=== PATIENT | female | born 1945 | race Caucasian/White ===

== ENCOUNTER 2019-12-07 09:00 | Outpatient (CLI) | payer MEDICARE, SELFPAY ==
--- NOTE | ~2019-12-07 | MM_ITS ---
EXAMINATION: MM diagnostic tayo RT w marshal HISTORY: Six-month follow-up of probably benign right breast calcifications TECHNIQUE: ML, MLO and cc 3-D tomosynthesis images of the right breast and magnification views were p erformed and synthetic 2-D images were generated. CAD analysis was submitted and interpreted. COMPARISON: 05/28/2019 diagnostic right digital mammogram 05/20/2019 bilateral digital screening mammogram BREAST PARENCHYMAL COMPOSITION: There are scattered areas of fibroglandular density. FINDINGS: There are scattered benign calcifications. No suspicious mass or architectural distortion, malignant calcification, skin thickening or retraction or significant new or developing density is de tected. IMPRESSION: No mammographic evidence of malignancy Recommendation: Routine annual mammographic screening BI-RADS Category 2: Benign finding(s). Reviewed, dictated and finalized at location A. LIFTER
== END 2019-12-07 09:01 | disposition home or self-care (01) ==
PROVIDERS: PCP Internal Medicine; Visit Provider Internal Medicine
DX: R92.8 Other abnormal and inconclusive findings on diagnostic imaging of breast (principal)
CPT/HCPCS: 77061; 77065; G0279

== ENCOUNTER 2020-10-20 14:51 | Emergency (ER) | payer MEDICARE, SELFPAY ==
--- NOTE | ~2020-10-20 | XR_ITS ---
EXAMINATION: XR chest 1V portable DATE: 10/20/2020 15:31 INDICATION: COVID-19 pneumonia. TECHNIQUE: A single frontal view of the chest was obtained on 2 radiographs. COMPARISON: Chest single view 06/23/2009 FINDINGS: There are patchy airspace opacities in all right lung zones and in left lower lung zone. No pleural effusion or pneumothorax. The heart size is normal. IMPRESSION: 1. Multifocal lung disease, consistent with pneumonia. Reviewed, dictated and finalized at location A. YSTEMS ENGINEER
[2020-10-20 14:51] VITALS: BP 175/81; PULSE 88; RESP 20; TEMP 36.6; O2SAT 94
[2020-10-20 15:35] LABS: Basophils Absolute Auto 0.02 K/mm3 (0.00-0.10); Basophils Percent Auto 0.5 % (0.0-1.0); Eosinophils Absolute Auto 0.01 K/mm3 (0.02-0.50); Eosinophils Percent Auto 0.2 % (1.0-6.0); Hematocrit 37.8 % (35.0-42.0); Hemoglobin 13.3 g/dL (11.7-13.8); Immature Granulocyte Absolute 0.02 K/mm3 (0.00-0.00); Immature Granulocyte Percent A 0.5 % (0.0-0.0); Lymphocytes Percent Auto 19.9 % (18.0-42.0); Mean Corpuscular HGB Conc 35.2 g/dL (32.0-36.0); Mean Corpuscular Hemoglobin 33.2 pg (27.0-31.0); Mean Corpuscular Volume 94.3 fL (78.0-102.0); Mean Platelet Volume 10.3 fl (9.2-11.8); Monocytes Absolute Auto 0.45 K/mm3 (0.10-0.90); Monocytes Percent Auto 11.2 % (2.0-11.0); Neutrophils Absolute Auto 2.7 K/mm3 (1.7-7.2); Neutrophils Percent Auto 67.7 % (50.0-70.0); Platelet Count Result 164 K/mm3 (150-420); Red Blood Count 4.01 M/mm3 (4.20-5.40); Red Cell Distribution Width 11.7 % (11.6-14.4)
[2020-10-20 15:51] LABS: Alanine Aminotransferase 55 U/L (14-59); Albumin Level 3.9 g/dL (3.4-5.0); Alkaline Phosphatase 55 U/L (46-116); Anion Gap 10 mmol/L (8-16); Aspartate Amino Transferase 50 U/L (15-37); Bilirubin,Total 0.5 mg/dL (0.00-1.00); Blood Urea Nitrogen 15 mg/dL (7-18); Calcium 8.9 mg/dL (8.5-10.1); Carbon Dioxide 26 mmol/L (21-32); Chloride 104 mmol/L (98-108); Estimated CRCL calculation 32 ml/min; Estimated Glomerular Filt Rate 44; Glucose 97 mg/dL (70-99); Osmolality Calculated 290 mOsm/kg (285-295); Potassium 3.6 mmol/L (3.5-5.1); Sodium 140 mmol/L (136-145); Total Protein 7.5 g/dL (6.4-8.2)
--- NOTE | 2020-10-20 16:08 | ED.SOB ---
HPI - SOB/Dyspnea General Chief Complaint: Shortness of Breath/Dyspnea Stated Complaint: sent from doctor sandra Source: patient Mode of arrival: ambulatory Limitations: no limitations History of Present Illness HPI Narrative: this is a 74-year-old female presents to the emergency department after she was diagnosis positive for COVID approximately 9 days ago and talk to her primary care physician where she was having increased shortness of breath with exertion and productive cough yellow sputum currently patient is afebrile, there is no chest pain no chest pressure no fever chills no nausea vomiting no abdominal pain. Patient has some history of hypertension and hyperlipidemia. MD elicited complaint: shortness of breath and cough Pertinent past history: other ( COVID positive approximately 9 days ago) Onset (ago): day(s) Severity: mild Exacerbating factors: exertion Related Data Home Medications Medication Instructions Recorded Confirmed ergocalciferol (vitamin D2) 1,250 mcg PO DAILY 10/20/20 10/20/20 pravastatin 10 mg PO DAILY 10/20/20 10/20/20 Allergies Allergy/AdvReac Type Severity Reaction Status Date / Time No Known Allergies Allergy Unverified 06/28/13 13:53 Review of Systems Review of Systems: All systems reviewed & are unremarkable except as noted in HPI and below PMFSH Past Medical History Medical History HLD (hyperlipidemia) HTN (hypertension) Exam Const: General: no acute distress and alert Orientation/consciousness: patient oriented x3 HENMT: Head: normal to inspection Eyes: Conjunctivae: conjunctivae normal Pupils: Equal, round and reactive pupils present EOM: EOMs intact bilaterally Direct Ophthalmoscopy: no photophobia Neck: Neck: normal visual inspection, no lymphadenopathy and no meningeal signs Chest: Chest palpation & inspection: normal inspection of the chest Resp: Effort & Inspection: normal respiratory effort Auscultation: clear to auscultation bilaterally Cardio: Rate: regular rate Rhythm: regular rhythm GI: Auscultation: normal bowel sounds : General: Yes no CVA tenderness Urinary Catheter: Urinary Catheter: patent and draining Back/Spine/Pelvis: Back: no CVA tenderness Skin: General skin exam: normal color Rashes: no rashes Extrem: General: normal to inspection and no pedal edema Psych: Mental Status: mental status grossly normal Course Course Emergency Course: after reassessment patient discuss findings of chest x-ray with patient and did show some patchy opacifications the right lung and left lower lung zones. The patient some CURB -65 score was 1, patient safe to discharge on an outpatient basis with a dose of IM ceftriaxone and well sent to patient's pharmacy Levaquin p.o.. Vital Signs Vital signs: Vital Signs Temperature 36.6 C 10/20/20 14:51 Pulse Rate 88 10/20/20 14:51 Respiratory Rate 20 10/20/20 14:51 Blood Pressure 175/81 H 10/20/20 14:51 Pulse Oximetry 94 10/20/20 14:51 Temperature 36.6 C 10/20/20 14:51 Pulse Rate 88 10/20/20 14:51 Respiratory Rate 20 10/20/20 14:51 Blood Pressure 175/81 H 10/20/20 14:51 Pulse Oximetry 94 10/20/20 14:51 MDM - SOB/Dyspnea Lab Data Result diagrams: 10/20/20 15:22 10/20/20 15:22 Labs: Lab Results 10/20/20 10/20/20 Range/Units 15:22 15:22 WBC 4.0 L (4.8-10.8) K/mm3 RBC 4.01 L (4.20-5.40) M/mm3 Hgb 13.3 (11.7-13.8) g/dL Hct 37.8 (35.0-42.0) % MCV 94.3 (78.0-102.0) fL MCH 33.2 H (27.0-31.0) pg MCHC 35.2 (32.0-36.0) g/dL RDW 11.7 (11.6-14.4) % Plt Count 164 (150-420) K/mm3 MPV 10.3 (9.2-11.8) fl Immature Gran % (Auto) 0.5 H (0.0-0.0) % Neut % (Auto) 67.7 (50.0-70.0) % Lymph % (Auto) 19.9 (18.0-42.0) % [place] % (Auto) 11.2 H (2.0-11.0) % Eos % (Auto) 0.2 L (1.0-6.0) % Baso % (Auto) 0.5 (0.0-1.0) % Lymph # (Auto) 0.80
[2020-10-20] MEDS: cefTRIAXone 1 GM VIAL IM (16:18)
[2020-10-20] MEDS: LIDOCAINE HCL 1% LOCAL INJ 20 ML VIAL (16:18)
[2020-10-20 16:30] VITALS: BP 129/63; PULSE 75; RESP 20; O2SAT 92
--- NOTE | 2020-10-20 16:57 | PC.NURSE ---
BETO, PHARMACIST AT [facility] CONTACTED FOR LEVAQUIN QUANTITY AND REFILL CORRECTION
== END 2020-10-20 16:50 | disposition home or self-care (01) ==
PROVIDERS: Emergency Provider Emergency Medicine; PCP Internal Medicine
DX: J18.9 Pneumonia, unspecified organism (principal); E78.5 Hyperlipidemia, unspecified; I10 Essential (primary) hypertension
CPT/HCPCS: 36415; 71045; 80053; 85025; 87040; 87077; 87186; 96372; 99283; J0696

== ENCOUNTER 2020-10-24 13:56 | Emergency (ER) | payer MEDICARE, SELFPAY ==
[2020-10-24] VITALS (14 sets, daily range): BP systolic 130–177; BP diastolic 61–85; PULSE 68–83; RESP 18–24; TEMP 37.2; O2SAT 95–99
--- NOTE | ~2020-10-24 | XR_ITS ---
EXAMINATION: XR chest 1V portable DATE: 10/24/2020 15:12 INDICATION: Cough and shortness of breath. COVID-19 pneumonia. TECHNIQUE: A single frontal view of the chest was obtained. COMPARISON: Chest single view 10/20/2020 FINDINGS: There are patchy airspace opacities in the mid and lower lung zones. No pleural effusion or pneumothorax. The heart size is normal. IMPRESSION: 1. Worsened patchy airspace opacities in the mid and lower lung zones, consistent with pneumonia. Reviewed, dictated and finalized at location A. F WELLNESS OFFICER IMPRESSION: 1. Worsened patchy airspace opacities in the mid and lower lung zones, consiste nt with pneumonia.
--- NOTE | 2020-10-24 14:55 | ECG_ITS ---
Measurements Intervals [place] Rate: 72 P: 38 NE: 127 QRS: -14 QRSD: 106 T: 31 QT: 380 QTc: 419 Interpretive Statements SINUS RHYTHM BASELINE ARTIFACT- V5 NORMAL ECG Electronically Signed On 10-24-2020 15:57:06 RIB PULLER by Tony Laurent D.O.
[2020-10-24 15:23] LABS: Basophils Percent Auto 0.3 % (0.2-1.2); Eosinophils Percent Auto 0.7 % (0-4.4); Hematocrit 34.1 % (37.0-47.0); Immature Granulocyte Absolute 0.04 K/mm3 (0.00-0.031); Immature Granulocyte Percent A 0.7 % (0-0.5); Lymphocytes Absolute Auto 0.96 K/mm3 (0.9-3.2); Lymphocytes Percent Auto 16.4 % (18.3-44.2); Mean Corpuscular HGB Conc 35.2 g/dl (32-36); Mean Corpuscular Hemoglobin 32.4 pg (26-34); Mean Corpuscular Volume 92.2 fl (80-100); Monocytes Absolute Auto 0.6 K/mm3 (0.1-0.6); Monocytes Percent Auto 9.7 % (2.6-8.5); Neutrophils Absolute Auto 4.2 K/mm3 (1.3-6.7); Neutrophils Percent Auto 72.2 % (45.5-73.1); Platelet Count Result 202 k/mm3 (150-375); Red Cell Distribution Width 11.4 % (11.5-14.5); White Blood Count 5.9 K/mm3 (4.5-10.0)
[2020-10-24 15:34] LABS: Alanine Aminotransferase 66 U/L (4-35); Albumin Level 3.9 g/dL (3.5-5.1); Alkaline Phosphatase 63 U/L (38-126); Anion Gap 6 mmol/L (8-16); Aspartate Amino Transferase 67 U/L (14-36); Bilirubin,Total 0.9 mg/dL (0.2-1.3); Blood Urea Nitrogen 12 mg/dL (7-17); Calcium 9.1 mg/dL (8.4-10.2); Carbon Dioxide 30 mmol/L (22-30); Chloride 103 mmol/L (98-107); Estimated CRCL calculation 38 ml/min; Estimated Glomerular Filt Rate 54; Glucose 96 mg/dL (65-105); Potassium 3.8 mmol/L (3.4-5.0); Sodium 139 mmol/L (137-145)
[2020-10-24 15:42] LABS: Atypical Lymphocytes Present; Platelet Estimate Adequate (Adequate)
--- NOTE | 2020-10-24 16:30 | ED.URI ---
HPI - URI/Sore Throat General Chief Complaint: Upper Respiratory Infection Stated Complaint: low o2 level/pneumonia/covid Time Seen by Provider: 10/24/20 14:55 Source: patient Mode of arrival: ambulatory Limitations: no limitations History of Present Illness HPI Narrative: This patient is a 74 year old female who presents for evaluation of covid pneumonia. She states she has been dealing with cough and sob for 1 week. She was evaluated at [facility] and she was diagnosed with pneumonia. She was discharge with an albuterol inhaler and levaquin. She states she has continue to have a cough and sob. She denies fever, chills, vomiting . She reports she has been monitoring her oxygen saturation, and her pulse oximeter was reading 91 at rest. In ER her oxygen is 99% at rest. Related Data Home Medications Medication Instructions Recorded Confirmed ergocalciferol (vitamin D2) 1,250 mcg PO DAILY 10/20/20 10/20/20 pravastatin 10 mg PO DAILY 10/20/20 10/20/20 Allergies Allergy/AdvReac Type Severity Reaction Status Date / Time No Known Allergies Allergy Unverified 06/28/13 13:53 Review of Systems Review of Systems: All systems reviewed & are unremarkable except as noted in HPI and below Constitutional: Constitutional: Denies chills and Denies fever(s) Cardiovascular: Cardiovascular: Denies chest pain Respiratory: Respiratory: Reports cough and Reports dyspnea Gastrointestinal: Gastrointestinal: Denies abdominal pain and Reports nausea Neurologic: Denies headache(s) [facility] Past Medical History Medical History HLD (hyperlipidemia) HTN (hypertension) Social History Social History Gender identity (if verbalized by the patient): Female Exam Const: General: alert Orientation/consciousness: patient oriented x3 Eyes: EOM: EOMs intact bilaterally Resp: Effort & Inspection: normal respiratory effort, no retractions, not tachypneic and no use of accessory muscles Auscultation: no crackles and wheezes Other: talking in complete sentences GI: GI Palp: Yes Soft to palpation, No Tenderness to palpation present (GI), No Guarding due to palpation present (GI) and No Rigid due to palpation Auscultation: normal bowel sounds Skin: General skin exam: normal color Rashes: no rashes Neuro: General: patient oriented x3 and moves all extremities Extrem: General: normal to inspection Psych: Mental Status: mental status grossly normal Affect: normal affect Course Reevaluation(s) Reevaluation #1: Patient has oxygen saturation of 96-99% on room air. When I ambulated patient her oxygen did not drop below 94% . She is not in distress. She has not tachypnea. I discussed discharge plan. Date: 10/24/20 Time: 18:28 Vital Signs Vital signs: Vital Signs Temperature 98.9 F 10/24/20 13:59 Pulse Rate 83 10/24/20 13:59 Respiratory Rate 20 10/24/20 13:59 Blood Pressure 177/82 H 10/24/20 13:59 Pulse Oximetry 95 10/24/20 13:59 Temperature 98.9 F 10/24/20 14:56 Pulse Rate 72 10/24/20 17:31 Respiratory Rate 23 H 10/24/20 17:31 Blood Pressure 130/66 10/24/20 17:31 Pulse Oximetry 96 10/24/20 17:31 MDM - URI/Sore Throat Lab Data Attestation: I reviewed the patient's lab results. Result diagrams: 10/24/20 15:13 10/24/20 15:13 Labs: Lab Results 10/24/20 10/24/20 Range/Units 15:13 15:13 WBC 5.9 (4.5-10.0) K/mm3 RBC 3.70 L (4.2-5.4) M/mm3 Hgb 12.0 (12.0-15.0) g/dL Hct 34.1 L (37.0-47.0) % MCV 92.2 (80-100) fl MCH 32.4 (26-34) pg MCHC 35.2 (32-36) g/dl RDW 11.4 L (11.5-14.5) % Plt Count 202 (150-375) k/mm3 MPV 10.0 (7.4-10.4) fl Immature Gran % (Auto) 0.7 H (0-0.5) % Neut % (Auto) 72.2 (45.5-73.1) % Lymph % (Auto) 16.4 L (18.3-44.2) % [place] % (Auto) 9.7 H (2.6-8.5) % Eos % (Auto) 0.7
== END 2020-10-24 19:07 | disposition home or self-care (01) ==
PROVIDERS: Emergency Medicine; Emergency Provider General Practice; PCP Internal Medicine
DX: U07.1 COVID-19 (principal); J12.89 Other viral pneumonia; E78.5 Hyperlipidemia, unspecified; I10 Essential (primary) hypertension
CPT/HCPCS: 36415; 71045; 80053; 85025; 93005; 99284

== ENCOUNTER 2021-08-07 13:45 | Outpatient (CLI) | payer MEDICARE, SELFPAY ==
--- NOTE | ~2021-08-07 | DEXA_ITS ---
Bone Density Report Name: Angelina Menjivar Age: 75 Sex: Female Ethnicity: White Date of : 1945 Indication: postmenopausal osteoporosis; monitoring treatment; height loss; hysterectomy; Referring Provider: Alfonso Albarran Study: Bone densitometry was performed. Exam Date: August 07, 2021 Accession number: [id number] Bone Density: Region BMD T-score Z-score Classification AP Spine(L1-L4) 0.697 -3.2 -0.7 Osteoporosis Femoral Neck (Left) 0.513 -3.0 -0.9 Osteoporosis Total Hip (Left) 0.649 -2.4 -0.6 Osteopenia Femoral Neck (Right) 0.538 -2.8 -0.7 Osteoporosis Total Hip (Right) 0.673 -2.2 -0.4 Osteopenia Femoral Neck Mean 0.526 -2.9 -0.8 Osteoporosis Total Hip Mean 0.661 -2.3 -0.5 Osteopenia World Health Organization criteria for BMD impression classify patients as: Normal (T-score at or above -1.0), Osteopenia (T-score between -1.0 and -2.5), or Osteoporosis (T-score at or below -2.5). 10-year Fracture Risk: FRAX not reported because: Some T-score for Spine Total or Hip Total or Femoral Neck at or below -2.5 Treated for osteoporosis Previous Exams: Region Exam Age BMD T-score BMD Change BMD Change Date g/cm2 vs Baseline vs Previous AP Spine (L1-L4) 08/07/2021 75 0.697 -3.2 -0.181 (-20.6% -0.077 (-9.9%) 04/26/2019 73 0.774 -2.5 -0.105 (-11.9% -0.021 (-2.7%) 04/18/2017 71 0.795 -2.3 -0.083 (-9.5%) -0.028 (-3.4%) 06/17/2014 68 0.823 -2.0 -0.055 (-6.3%) -0.010 (-1.2%) 08/05/2011 65 0.833 -1.9 -0.046 (-5.2%) -0.046 (-5.2%) 10/26/2007 61 0.878 -1.5 Total Hip(Left) 08/07/2021 75 0.649 -2.4 -0.093 (-12.6% -0.055 (-7.8%) 04/26/2019 73 0.704 -2.0 -0.039 (-5.2%) 0.015 (2.2%) 04/18/2017 71 0.688 -2.1 -0.054 (-7.3%) -0.004 (-0.5%) 06/17/2014 68 0.692 -2.1 -0.051 (-6.8%) -0.020 (-2.8%) 08/05/2011 65 0.711 -1.9 -0.031 (-4.2%) -0.031 (-4.2%) 10/26/2007 61 0.742 -1.6 Total Hip(Right) 08/07/2021 75 0.673 -2.2 -0.078 (-10.4% 0.012 (1.8%)# 04/26/2019 73 0.661 -2.3 -0.090 (-11.9% -0.031 (-4.5%) 06/17/2014 68 0.693 -2.0 -0.058 (-7.8%) -0.052 (-7.0%) 08/05/2011 65 0.745 -1.6 -0.006 (-0.8%) -0.006 (-0.8%) 10/26/2007 61 0.751 -1.6 *Denotes significance at 95% confidence level, LSC for AP Spine = 0.022 g/cm2, LSC for Total Hip = 0.027 g/cm2 # Denotes dissimilar scan types or analysis methods Clinical Information Provided by Patient: Is being treated for osteoporosis Has used the followi
== END 2021-08-07 13:46 | disposition home or self-care (01) ==
LOC: CHSIMG 13:47
PROVIDERS: PCP Internal Medicine; Visit Provider Internal Medicine
DX: M81.0 Age-related osteoporosis without current pathological fracture (principal)
CPT/HCPCS: 77080

== ENCOUNTER 2021-09-10 08:44 | Outpatient (CLI) | payer MEDICARE, SELFPAY ==
[2021-09-10 09:00] VITALS: BP 159/67; PULSE 60; RESP 18; TEMP 35.6; O2SAT 97
[2021-09-10] MEDS: ZOLEDRONIC ACID 5 MG/100 ML 100 ML 300 MG IVPB (09:02)
[2021-09-10 09:09] VITALS: BMI 27.3
--- NOTE | 2021-09-10 09:27 | PC.NURSE ---
Patient here for IV infusion of Reclast 5mg/100ml. Written education material about Reclast given to patient. Side effects reviewed. Patient verbalized understanding. Patient tolerated IV infusion well. Denies any side effects at this time. IV cath removed intact. Patient safely ambulated from OP treatment area independently. Annamarie Palmer RN
== END 2021-09-10 08:45 | disposition home or self-care (01) ==
LOC: CHSTREATRM 08:47
PROVIDERS: PCP Internal Medicine; Visit Provider Internal Medicine
DX: M81.0 Age-related osteoporosis without current pathological fracture (principal)
CPT/HCPCS: 96365; J3489

== ENCOUNTER 2022-10-15 08:44 | Outpatient (CLI) | payer MEDICARE, SELFPAY ==
--- NOTE | ~2022-10-15 | MM_ITS ---
EXAMINATION: MM screening tayo BI w marshal HISTORY: Screening mammogram TECHNIQUE: Craniocaudal and mediolateral oblique 3-D tomosynthesis images were obtained and synthetic 2-D images were generated. CAD analysis was submitted and interpreted. COMPARISON: 12/07/2019 diagnostic right mammogram 05/28/2019 diagnostic right mammogram 05/20/2019, 05/12/2018 bilateral screening mammogram examinations BREAST PARENCHYMAL COMPOSITION: There are scattered areas of fibroglandular density. FINDINGS: Numerous bilateral benign calcifications are again noted. There is no evidence of suspiciou s mass, calcification, or architectural distortion to suggest malignancy in either breast. There has been no suspicious interval change. IMPRESSION: 1. No mammographic evidence of malignancy. 2. Recommend routine screening mammography in one year. BI-RADS Category 2: Benign finding(s). Reviewed, dictated and finalized at location A. RAL RESOURCES INSTRUCTOR
[2022-10-15] MEDS: ZOLEDRONIC ACID 5 MG/100 ML 100 ML 400 MG IVPB (09:15)
[2022-10-15 09:24] VITALS: BP 152/70; PULSE 68; RESP 14; TEMP 36.6; O2SAT 100
[2022-10-15 09:26] VITALS: BMI 27.7
--- NOTE | 2022-10-15 09:27 | PC.NURSE ---
Patient here for yearly IV Reclast. Education given. No concerns voiced. Reports did well last year with it. IV Reclast administered. SEE MAR. Tolerated well. Safe exit of hospital. Will return next year about this time once bone density test done.
== END 2022-10-15 08:45 | disposition home or self-care (01) ==
LOC: CHSTREATRM 08:48
PROVIDERS: PCP Internal Medicine; Visit Provider Internal Medicine
DX: M81.0 Age-related osteoporosis without current pathological fracture (principal); Z12.31 Encounter for screening mammogram for malignant neoplasm of breast
CPT/HCPCS: 77063; 77067; 96365; 96374; J3489

== ENCOUNTER 2023-04-07 14:49 | Outpatient (CLI) | payer MEDICARE, SELFPAY ==
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
== END 2023-04-07 14:50 | disposition home or self-care (01) ==
LOC: CHSIMG 14:52
PROVIDERS: PCP Internal Medicine; Visit Provider Internal Medicine
DX: S89.91XA Unspecified injury of right lower leg, initial encounter (principal)
CPT/HCPCS: 73562

== ENCOUNTER 2023-05-26 11:00 | Outpatient (RCR) | payer OTHER, SELFPAY ==
--- NOTE | 2023-04-30 14:33 | OPREHPOC ---
Outpatient Therapy Plan of Care This is a Multidisciplinary Plan of Care that may contain components documented by all disciplines (PT, OT, and ST.) PT Problem 1 PT Problem #1 Knowledge Deficit PT Goal 1 Goal Pt to be IND with issued HEP Target Visit 4 PT Problem 2 PT Problem #2 Pain PT Goal 1 Goal Pt to report knee pain no greater than 3/10 in the last week Target Visit 4 PT Goal 2 Goal Pt to report 80% improvement in overall symptoms Target Visit 4 PT Problem 3 PT Problem #3 Impaired Range of Motion PT Goal 1 Goal Pt to demonstrate full active knee extension Target Visit 4 PT Problem 4 PT Problem #4 Impaired Gait PT Goal 1 Goal Pt to ambulate without deviations Target Visit 4
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
== END 2023-05-28 08:33 | disposition home or self-care (01) ==
LOC: ANHGOSHPT 11:00
PROVIDERS: PCP Internal Medicine; Visit Provider Internal Medicine
DX: M25.561 Pain in right knee (principal)
CPT/HCPCS: 97110; 97116; 97140; 97161; 97530

== ENCOUNTER 2023-11-07 14:18 | Outpatient (CLI) | payer MEDICARE, SELFPAY ==
--- NOTE | ~2023-11-07 | DEXA_ITS ---
Bone Density Report Name: PLACIDO DIETZ Age: 77 Sex: Female Ethnicity: White Date of : 1945 Indication: postmenopausal; screening for osteoporosis; height loss; hysterectomy; Referring Provider: Alfonso Albarran Study: Bone densitometry was performed. Exam Date: November 07, 2023 Accession number: [id number] Bone Density: Region BMD T-score Z-score Classification AP Spine(L1-L4) 0.717 -3.0 -0.4 Osteoporosis Femoral Neck (Left) 0.509 -3.1 -0.9 Osteoporosis Total Hip (Left) 0.681 -2.1 -0.2 Osteopenia Femoral Neck (Right) 0.526 -2.9 -0.7 Osteoporosis Total Hip (Right) 0.714 -1.9 0.1 Osteopenia Femoral Neck Mean 0.517 -3.0 -0.8 Osteoporosis Total Hip Mean 0.698 -2.0 -0.1 Osteopenia World Health Organization criteria for BMD impression classify patients as: Normal (T-score at or above -1.0), Osteopenia (T-score between -1.0 and -2.5), or Osteoporosis (T-score at or below -2.5). 10-year Fracture Risk: FRAX not reported because: Some T-score for Spine Total or Hip Total or Femoral Neck at or below -2.5 Treated for osteoporosis Clinical Information Provided by Patient: Is being treated for osteoporosis Has used the following medications: Reclast (i.e. zoledronate), Vitamin D Has the following medical conditions: Hysterectomy Patient maximum height was 62 Menopause Age: 37 No regular weight bearing exercise Drinks caffeinated beverages Onset of menses at age 12 Number of children 2 Impression: The patient has osteoporosis, based on the Left Femoral Neck T-score. Discussion: It is important to ask patients whether they are taking their medications and to encourage continued and appropriate compliance with their osteoporosis therapies to reduce fracture risk. It is also important to review their risk factors and encourage appropriate calcium and vitamin D intakes, exercise, fall prevention and other lifestyle measures. Follow-Up: Consider a repeat BMD and Vertebral Fracture Assessment (VFA) exam in 2 years or sooner if medically necessary, to reassess this patient's status. Reported by: Dr. Rayshawn Victoria on 11/07/2023 2:59:00 PM. Reviewed, dictated and finalized at location A.
--- NOTE | ~2023-11-07 | MM_ITS ---
EXAMINATION: MM screening tayo BI w marshal HISTORY: Screening TECHNIQUE: Craniocaudal and mediolateral oblique 3-D tomosynthesis images were obtained and synthetic 2-D images were generated. CAD analysis was submitted and interpreted. COMPARISON: Comparison to multiple prior studies sequentially, with oldest reviewed study dated 09/25. BREAST PARENCHYMAL COMPOSITION: Breast composed of scattered areas of fibroglandular density FINDINGS: No significant change to benign-appearing bilateral breast calcifications. There is no evid ence of suspicious mass, calcification, or architectural distortion to suggest malignancy in either b reast. There has been no suspicious interval change. IMPRESSION: 1. No mammographic evidence of malignancy. 2. Recommend routine screening mammography in one year. BI-RADS Category 2: Benign finding(s). Reviewed, dictated and finalized at location A. CRIB SUPERVISOR
== END 2023-11-07 14:19 | disposition home or self-care (01) ==
LOC: CHSIMG 14:19
PROVIDERS: PCP Internal Medicine; Visit Provider Internal Medicine
DX: Z12.31 Encounter for screening mammogram for malignant neoplasm of breast (principal); Z78.0 Asymptomatic menopausal state; M81.0 Age-related osteoporosis without current pathological fracture; M85.89 Other specified disorders of bone density and structure, multiple sites
CPT/HCPCS: 77063; 77067; 77080

== ENCOUNTER 2023-11-21 09:13 | Outpatient (CLI) | payer MEDICARE, SELFPAY ==
[2023-11-21 09:19] VITALS: BMI 27.7
[2023-11-21] MEDS: ZOLEDRONIC ACID 5 MG/100 ML 100 ML 400 MG IVPB (09:20)
[2023-11-21 09:26] VITALS: BP 159/60; PULSE 78; RESP 14; TEMP 36.6; O2SAT 98
--- NOTE | 2023-11-21 09:43 | PC.NURSE ---
Patient was here for yearly IV Reclast infusion. Education given. NO concerns voiced. IV Reclast administered. SEE MAR. Tolerated well. Safe exit of hospital per self/ambulation.
== END 2023-11-21 09:14 | disposition home or self-care (01) ==
LOC: CHSTREATRM 09:16
PROVIDERS: PCP Internal Medicine; Visit Provider Internal Medicine
DX: M81.0 Age-related osteoporosis without current pathological fracture (principal)
CPT/HCPCS: 96374; J3489

== ENCOUNTER 2023-12-04 00:58 | Day surgery (SDC) | payer MEDICARE, SELFPAY ==
[2023-11-18 09:11] VITALS: BMI 26.2
--- NOTE | 2023-12-02 11:18 | SUR.PREOP ---
Patient called regarding upcoming procedure. Reviewed preop instructions, appointment times, and procedure prep.
[2023-12-04 07:16] VITALS: BP 130/69; PULSE 67; RESP 18; TEMP 35.9; O2SAT 99
[2023-12-04] MEDS: LACTATED RINGERS 1,000 ML 150 ML IV CONT (07:25)
--- NOTE | 2023-12-04 08:24 | P.PNAN_ITS ---
Anes - Initial Pre Proc Eval Procedure: Operation Date: 12/04/23 08:30 Proposed Procedures p Screening Colonoscopy - Pradeep Kidd DO Date/Time: 12/04/23 08:24 Surgeon: Pradeep Kidd DO Pre Op Diagnosis: neoplasm screening Patient Data Age: 78 Gender: F Height: 1.52 m Weight: 60.5 kg Last Vital Signs Temp 96.6 F L 12/04/23 07:16 Pulse 67 12/04/23 07:16 Resp 18 12/04/23 07:16 BP 130/69 12/04/23 07:16 Pulse Ox 99 12/04/23 07:16 O2 Del Method Room Air 12/04/23 07:16 Allergies Allergy/AdvReac Type Severity Reaction Status Date / Time No Known Allergies Allergy Verified 12/04/23 07:15 Home Medications Medication Instructions Recorded Confirmed Type ergocalciferol (vitamin D2) 1,250 1,250 mcg PO DAILY 10/20/20 11/21/23 History mcg (50,000 unit) capsule pravastatin 10 mg tablet 10 mg PO DAILY 10/20/20 11/21/23 History amlodipine 10 mg tablet 10 mg PO DAILY 11/18/23 11/21/23 History Patient hx anesthesia problems: none Family hx anesthesia problems: none Results Review: All pre-operative results and documents have been reviewed as part of the pre- operative evaluation. [facility] Past Medical History Medical History HLD (hyperlipidemia) HTN (hypertension) Social History Social History Smoking status: Never smoker Substance use type: does not use Living arrangements: with family Gender identity (if verbalized by the patient): Female Spiritual care concerns: No Anes - Eval Final PreProcedure Day of Procedure 12/04/23 08:24 Patient weight: normal Heart: regular rate and rhythm Lungs: clear to auscultation Airway: Mallampati scale class II Neurological: alert and oriented Last oral intake: >/= 8 hours ASA classification: II Emergent: no Anesthetic plan: proceed Anesthesia type and monitoring: general GIVS and standard monitoring Results Review: All pre-operative results and documents have been reviewed as part of the pre- operative evaluation. Informed Consent: The patient's anesthetic plan and its attendant risks and benefits were discussed with the patient/family/POA. Questions were solicited and answers pro vided to the satisfaction of the patient/family/POA.
--- NOTE | 2023-12-04 08:41 | PM.IMHP ---
H&P: HPI History of Present Illness Date/Time: 12/04/23 08:41 Chief Complaint: Screening for colorectal cancer Narrative: This is a 78-year-old woman who presents for colonoscopy. Her last colonoscopy was 10 years ago and was normal. She denies any family history of colon cancer or any hematochezia or melena. Review of Systems Review of Systems: All systems reviewed & are unremarkable except as noted in HPI and below Constitutional: Constitutional: Denies chills, Denies fever(s), Denies headache(s) and Denies weight loss Eyes: Eyes: Denies change in vision ENT: Denies dizziness, Denies headache(s), Denies neck mass and Denies throat swelling Cardiovascular: Cardiovascular: Denies chest pain, Denies lightheadedness and Denies dyspnea Respiratory: Respiratory: Denies cough, Denies dyspnea and Denies wheezing Gastrointestinal: Gastrointestinal: Denies abdominal pain, Denies change in bowel habits, Denies nausea and Denies vomiting Genitourinary: Genitourinary: Denies hematuria and Denies dysuria Musculoskeletal: Musculoskeletal: Reports as per HPI Integumentary/Breasts: Skin/Breast: Reports as per HPI Neurologic: Denies dizziness and Denies headache(s) Allergic/Immunologic: Allergic/Immunologic: Denies throat swelling and Denies wheezing PMF Past Medical History Medical History HLD (hyperlipidemia) HTN (hypertension) Social History Social History Smoking status: Never smoker Substance use type: does not use Living arrangements: with family Gender identity (if verbalized by the patient): Female Spiritual care concerns: No Meds Home Medications and Allergies Home Medications Medication Instructions Recorded Confirmed Type ergocalciferol (vitamin D2) 1,250 1,250 mcg PO DAILY 10/20/20 11/21/23 History mcg (50,000 unit) capsule pravastatin 10 mg tablet 10 mg PO DAILY 10/20/20 11/21/23 History amlodipine 10 mg tablet 10 mg PO DAILY 11/18/23 11/21/23 History Allergies Allergy/AdvReac Type Severity Reaction Status Date / Time No Known Allergies Allergy Verified 12/04/23 07:15 Vital Signs Vital Signs - 24 hr 12/04/23 07:16 Temperature 35.9 C L Pulse Rate 67 Respiratory Rate 18 Blood Pressure 130/69 Pulse Oximetry 99 Oxygen Delivery Room Air Exam Const: General: no acute distress and alert Orientation/consciousness: patient oriented x3 HENMT: Head: normocephalic and atraumatic Ears: hearing grossly normal bilaterally Face/Nose/Sinus: Normal nares present Mouth: Yes Normal oral and palatal mucosa present Eyes: Periorbital: periorbital findings normal Sclera: sclerae normal EOM: EOMs intact bilaterally Neck: Neck: normal visual inspection, no lymphadenopathy and trachea midline Chest: Chest palpation & inspection: normal inspection of the chest Resp: Effort & Inspection: normal respiratory effort Auscultation: clear to auscultation bilaterally Cardio: Jugular venous distension: no JVD Rate: regular rate Rhythm: regular rhythm Heart sounds: S1 normal heart sound present and S2 normal heart sound present Peripheral pulses: Peripheral pulses 2+ throughout GI: Inspection: normal to inspection GI Palp: Yes Soft to palpation, No Tenderness to palpation present (GI), No Guarding due to palpation present (GI) and No Rebound tenderness present Percussion: Yes normal to percussion Auscultation: normal bowel sounds : General: Yes no CVA tenderness Back/Spine/Pelvis: Back: no CVA tenderness Neuro: General: patient oriented x3, no focal motor deficits and CN's II-XI intact bilaterally Cognition (Neuro): normal cognition Speech: normal speech Motor exam (neuro): 5/5 motor strength present throughout Extrem: General: capillary refill normal and no clubbing, cyanosis or edema Assessment and Plan Assessment and plan (1) Screening for colorectal canc
[2023-12-04 09:08] VITALS: BP 94/51; PULSE 67; RESP 20; O2SAT 97
[2023-12-04 09:18] VITALS: BP 96/52; PULSE 65; RESP 22; O2SAT 98
[2023-12-04 09:28] VITALS: BP 121/58; PULSE 68; RESP 15; O2SAT 99
== END 2023-12-04 09:40 | disposition home or self-care (01) ==
PROVIDERS: PCP Internal Medicine; Visit Provider Surgery
PROC: 0DJD8ZZ Inspection of Lower Intestinal Tract, Via Natural or Artificial Opening Endoscopic (ICD-10-PCS; CPT 45378; principal; 2023-12-04 08:30)
DX: Z12.11 Encounter for screening for malignant neoplasm of colon (principal); K64.8 Other hemorrhoids; E78.5 Hyperlipidemia, unspecified; I10 Essential (primary) hypertension
CPT/HCPCS: G0121; J2704; J7120

== ENCOUNTER 2023-12-05 11:04 | Emergency (ER) | payer MEDICARE, SELFPAY ==
[2023-12-05] VITALS (7 sets, daily range): BP systolic 109–172; BP diastolic 64–80; PULSE 73–91; RESP 11–25; TEMP 36.8; O2SAT 98–100
--- NOTE | ~2023-12-05 | XR_ITS ---
Clinical Indication: Chest pain PA and lateral views of the chest: Comparison: 10/24/2020 Findings: The lungs are clear, without evidence of focal consolidation or pleural effusion. Cardiome diastinal silhouette is within normal limits. Bones and soft tissues are unremarkable. Impression: Normal chest. Reviewed, dictated and finalized at location . 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
--- NOTE | ~2023-12-05 | CT_ITS ---
EXAMINATION: CTA chest abdomen pelvis DATE: 12/05/2023 12:03 INDICATION: Midsternal chest pain radiating to back, worse with inspiration. Evaluate for thoracic ao rtic dissection. TECHNIQUE: Computed tomography (CT) of the chest, abdomen, and pelvis was performed with 100 CC Omnip aque 350 intravenous contrast. Automated exposure control and iterative reconstruction technique were employed. Exam dose: 598.21 mGy-cm total exam DLP. COMPARISON: 12/05/2023 PA and lateral chest 09/26/2015 CT abdomen pelvis FINDINGS: CHEST CT: No thoracic aortic aneurysm or dissection. Normal heart size. No evidence of pulmonary embolism. No hilar or mediastinal mass lesion or lymphade nopathy. No pericardial or pleural effusion. The lungs are clear of infiltrate or consolidation. No pulmonary mass lesion is noted. Small sliding hiatal hernia. ABDOMEN/PELVIS CT: Status post cholecystectomy. No hepatic space-occupying mass lesion. Normal splenic size. No pancreat ic mass lesion, calcification or ductal dilatation. No bile duct or pancreatic duct dilatation. Normal morphology of the adrenal glands. Duplicated left kidney. No renal mass lesion or urinary tract calculus or hydroureteronephrosis. There is atherosclerotic calcification but normal caliber of the abdominal aorta. No abdominal aortic aneurysm or dissection. No intraperitoneal or retroperitoneal or pelvic mass lesion or adenopathy or ascites. There is mild increased density of the mesenteric adipose tissue likely due to mild mesenteric pannic ulitis. Status post hysterectomy. The urinary bladder is unremarkable. No bowel obstruction, bowel wall thickening, pneumatosis or intraperitoneal free air is detected. No suspicious osteolytic or osteoblastic lesions. IMPRESSION: No thoracic or abdominal aortic aneurysm or dissection Reviewed, dictated and finalized at Location A. Reviewed, dictated and finalized at location B. HER
--- NOTE | 2023-12-05 11:05 | ECG_ITS ---
Measurements Intervals [place] Rate: 89 P: 44 WV: 119 QRS: -26 QRSD: 88 T: 32 QT: 354 QTc: 432 Interpretive Statements SINUS RHYTHM WITH SHORT [place] INTERVAL CONSIDER INFERIOR INFARCT, AGE INDETERMINATE BORDERLINE ST-T WAVE ABNORMALITY- ANTEROLAT/HIGH LAT LEADS ABNORMAL ECG COMPARED TO ECG 10/24/2020 15:00:06 ST-T WAVE ABNORMALITY NOW PRESENT Electronically Signed On 12-05-2023 11:30:46 FORMULA TECHNICIAN by Tony Laurent D.O.
[2023-12-05 11:26] LABS: Basophils Absolute Auto 0.1 K/mm3 (0.0-0.1); Basophils Percent Auto 0.7 % (0.2-1.2); Eosinophils Absolute Auto 0.1 K/mm3 (0-0.3); Eosinophils Percent Auto 0.8 % (0-4.4); Hematocrit 40.9 % (37.0-47.0); Hemoglobin 14.1 g/dL (12.0-15.0); Immature Granulocyte Absolute 0.03 K/mm3 (0.00-0.031); Immature Granulocyte Percent A 0.3 % (0-0.5); Lymphocytes Absolute Auto 1.54 K/mm3 (0.9-3.2); Lymphocytes Percent Auto 13.8 % (18.3-44.2); Mean Corpuscular HGB Conc 34.5 g/dl (32-36); Mean Corpuscular Hemoglobin 32.7 pg (26-34); Mean Corpuscular Volume 94.9 fl (80-100); Mean Platelet Volume 9.9 fl (7.4-10.4); Monocytes Absolute Auto 0.7 K/mm3 (0.1-0.6); Monocytes Percent Auto 6.1 % (2.6-8.5); Neutrophils Absolute Auto 8.7 K/mm3 (1.3-6.7); Neutrophils Percent Auto 78.3 % (45.5-73.1); Platelet Count Result 252 k/mm3 (150-375); Red Blood Count 4.31 M/mm3 (4.2-5.4); White Blood Count 11.1 K/mm3 (4.5-10.0)
[2023-12-05 11:34] LABS: INR 0.9; Prothrombin Time 12.8 Seconds (11.1-14.7)
[2023-12-05 11:35] LABS: Alanine Aminotransferase 21 U/L (6-35); Albumin Level 4.7 g/dL (3.5-5.1); Alkaline Phosphatase 48 U/L (38-126); Anion Gap 12 mmol/L (8-16); Aspartate Amino Transferase 27 U/L (14-36); Bilirubin,Total 0.8 mg/dL (0.2-1.3); Blood Urea Nitrogen 12 mg/dL (7-17); Calcium 9.2 mg/dL (8.4-10.2); Carbon Dioxide 23 mmol/L (22-30); Chloride 105 mmol/L (98-107); Estimated CRCL calculation 37 ml/min; Estimated Glomerular Filt Rate > 60; Glucose 97 mg/dL (65-110); Lipase 58 U/L (23-300); Potassium 3.4 mmol/L (3.4-5.0); Sodium 140 mmol/L (137-145)
[2023-12-05 11:36] LABS: Partial Thromboplastin Time 29.4 SECONDS (22.3-36.8)
[2023-12-05 11:47] LABS: Troponin I < 0.012 ng/mL (0.000-0.034)
--- NOTE | 2023-12-05 12:25 | ED.CHESTPAIN ---
HPI - Chest Pain General Chief Complaint: Chest Pain Stated Complaint: chest pain Time Seen by Provider: 12/05/23 11:12 Source: patient Mode of arrival: ambulatory Limitations: no limitations History of Present Illness HPI narrative: 78-year-old female presenting with chest pain. Patient describes central sternal chest pain radiating to her back between shoulder blades starting about 4 hours ago it hurts worse with deep breathing and is otherwise constant. She says it is quite mild 3/10 on the pain scale. Has not been having any flu-like symptoms. No cough shortness of breath. She has not had these symptoms in the past. No paresthesias or weakness. Related Data Home Medications Medication Instructions Recorded Confirmed ergocalciferol (vitamin D2) 1,250 1,250 mcg PO DAILY 10/20/20 11/21/23 mcg (50,000 unit) capsule pravastatin 10 mg tablet 10 mg PO DAILY 10/20/20 11/21/23 amlodipine 10 mg tablet 10 mg PO DAILY 11/18/23 11/21/23 Allergies Allergy/AdvReac Type Severity Reaction Status Date / Time No Known Allergies Allergy Verified 12/04/23 07:15 Review of Systems Review of Systems: All systems reviewed & are unremarkable except as noted in HPI and below (HPI) [facility] Past Medical History Medical History HLD (hyperlipidemia) HTN (hypertension) Social History Social History Smoking status: Never smoker Substance use type: does not use Living arrangements: with family Gender identity (if verbalized by the patient): Female Spiritual care concerns: No Exam Narrative: Constitutional: Generally well appearing, no acute distress Head: Atraumatic, no deformities. Eyes: Pupils equal, round, and reactive to light. Neck: Supple, no tracheal deviation, no JVD. ENMT: Mucous membranes moist Cardiovascular: S1, S2 auscultated. No murmurs, rubs, or gallops. No S3/S4. Normal Distal pulses. No peripheral edema. Respiratory: Lung sounds equal. No wheezes, rales, or rhonchi. Gastrointestinal: Abdomen was soft and non-tender. Non-distended. No rebound or guarding. Genitourinary: Deferred Musculoskeletal: Normal muscle tone and bulk. No obvious deformities or tenderness over extremities. Skin: No rashes. Neurological: Strength 5/5 in extremities. Cranial nerves I-XII grossly intact. Distal sensation intact. Mental Status: Awake, alert and oriented x3. Follows commands Course Vital Signs Vital signs: Vital Signs Temperature 36.8 C 12/05/23 11:10 Pulse Rate 91 12/05/23 11:10 Respiratory Rate 16 12/05/23 11:10 Blood Pressure 172/72 H 12/05/23 11:10 Pulse Oximetry 100 12/05/23 11:10 Temperature 36.8 C 12/05/23 11:10 Pulse Rate 80 12/05/23 12:45 Respiratory Rate 15 12/05/23 12:45 Blood Pressure 134/69 12/05/23 12:45 Pulse Oximetry 98 12/05/23 12:45 Oxygen Delivery Room Air 12/05/23 11:30 MDM - Chest Pain MDM Narrative Medical decision making narrative: Well-appearing 70-year-old female presenting with chest pain radiating to the back started about 4 hours prior to arrival. On exam she was initially hypertensive at 172/72. Otherwise normal cardiorespiratory exam here concerns. Filling out aortic dissection, ACS, PE primarily. Obtain CTA chest abdomen pelvis without dissection as well as cardiac workup. Hold off on aspirin for now given concern for possible dissection. CTA dissection study was negative. Will give patient aspirin at this point as well as a GI cocktail. Possibly could be related to GERD. EKG complain shows sinus rhythm, normal intervals and no ST elevations or depressions. No ischemic changes. Impression: No STEMI Labs and imaging reviewed. Troponin 0 however and 3 hour both negative. Labs otherwise showed no focal cause for symptoms. She is feeling a lot better. Blood pressures come down on its own. Pt feeling improved and
[2023-12-05] MEDS: ASPIRIN 81 MG CHEWABLE TABLET 324 MG PO (12:31)
[2023-12-05] MEDS: BELLADONNA ALK/PHENOB ELIX 10 ML, MAG HYDROX/ALUMINUM HYD/SIMETH 30 ML, LIDOCAINE HCL 2... PO (13:05)
[2023-12-05 13:47] LABS: Lipase 57 U/L (23-300)
[2023-12-05 14:25] LABS: Basophils Absolute Auto 0.1 K/mm3 (0.0-0.1); Basophils Percent Auto 0.5 % (0.2-1.2); Eosinophils Absolute Auto 0.1 K/mm3 (0-0.3); Eosinophils Percent Auto 0.5 % (0-4.4); Hematocrit 35.3 % (37.0-47.0); Hemoglobin 11.9 g/dL (12.0-15.0); Immature Granulocyte Absolute 0.03 K/mm3 (0.00-0.031); Immature Granulocyte Percent A 0.3 % (0-0.5); Lymphocytes Absolute Auto 0.97 K/mm3 (0.9-3.2); Lymphocytes Percent Auto 10.6 % (18.3-44.2); Mean Corpuscular HGB Conc 33.7 g/dl (32-36); Mean Corpuscular Hemoglobin 32.7 pg (26-34); Mean Platelet Volume 10.2 fl (7.4-10.4); Monocytes Absolute Auto 0.6 K/mm3 (0.1-0.6); Monocytes Percent Auto 6.8 % (2.6-8.5); Neutrophils Absolute Auto 7.4 K/mm3 (1.3-6.7); Neutrophils Percent Auto 81.3 % (45.5-73.1); Platelet Count Result 223 k/mm3 (150-375); Red Blood Count 3.64 M/mm3 (4.2-5.4); Red Cell Distribution Width 12.1 % (11.5-14.5); White Blood Count 9.2 K/mm3 (4.5-10.0)
[2023-12-05 14:29] LABS: Prothrombin Time 13.4 Seconds (11.1-14.7)
[2023-12-05 14:30] LABS: Partial Thromboplastin Time 29.2 SECONDS (22.3-36.8)
[2023-12-05 14:40] LABS: Troponin I < 0.012 ng/mL (0.000-0.034)
--- NOTE | 2023-12-05 16:06 | ECG_ITS ---
Measurements Intervals [place] Rate: 67 P: 46 UT: 130 QRS: -8 QRSD: 84 T: 24 QT: 356 QTc: 378 Interpretive Statements SINUS RHYTHM BORDERLINE T WAVE ABNORMALITY- ANTERIOR LEADS BORDERLINE ECG COMPARED TO ECG 12/05/2023 11:13:15 NO SIGNIFICANT CHANGES Electronically Signed On 12-05-2023 20:10:24 DIE CUTTER by Tony Laurent D.O.
== END 2023-12-05 15:00 | disposition home or self-care (01) ==
PROVIDERS: Emergency Provider Emergency Medicine; PCP Internal Medicine
DX: R07.89 Other chest pain (principal); E78.5 Hyperlipidemia, unspecified; I10 Essential (primary) hypertension; R94.31 Abnormal electrocardiogram [ECG] [EKG]; Z90.49 Acquired absence of other specified parts of digestive tract; Z90.710 Acquired absence of both cervix and uterus; Q63.0 Accessory kidney
CPT/HCPCS: 36415; 71046; 71275; 74174; 80053; 83690; 84484; 85025; 85610; 85730; 93005; 99284; A9270; Q9967

== ENCOUNTER 2024-03-04 00:12 | Day surgery (SDC) | payer MEDICARE, SELFPAY ==
[2024-02-20 09:13] VITALS: BMI 25.4
[2024-03-04 09:19] VITALS: BP 132/64; RESP 16; TEMP 35.9; O2SAT 99
[2024-03-04] MEDS: LACTATED RINGERS 1,000 ML 150 ML IV CONT (09:32)
--- NOTE | 2024-03-04 09:47 | P.PNAN_ITS ---
Anes - Initial Pre Proc Eval Procedure: Operation Date: 03/04/24 11:00 Proposed Procedures p Esophagogastroduodenoscopy - Pradeep Kidd DO Date/Time: 03/04/24 09:47 Surgeon: Pradeep Kidd DO Pre Op Diagnosis: dysphagia Patient Data Age: 78 Gender: F Height: 1.52 m Weight: 61.5 kg Last Vital Signs Temp 96.6 F L 03/04/24 09:19 Resp 16 03/04/24 09:19 BP 132/64 03/04/24 09:19 Pulse Ox 99 03/04/24 09:19 O2 Del Method Room Air 03/04/24 09:19 Allergies Allergy/AdvReac Type Severity Reaction Status Date / Time No Known Allergies Allergy Verified 03/04/24 09:17 Home Medications Medication Instructions Recorded Confirmed Type ergocalciferol (vitamin D2) 1,250 1,250 mcg PO DAILY 10/20/20 03/04/24 History mcg (50,000 unit) capsule pravastatin 10 mg tablet 10 mg PO DAILY 10/20/20 03/04/24 History amlodipine 10 mg tablet 10 mg PO DAILY 11/18/23 03/04/24 History Nexium 20 mg PO DAILY 02/20/24 03/04/24 History Patient hx anesthesia problems: none Family hx anesthesia problems: none Results Review: All pre-operative results and documents have been reviewed as part of the pre- operative evaluation. [facility] Past Medical History Medical History HLD (hyperlipidemia) HTN (hypertension) Social History Social History Smoking status: Never smoker Substance use type: does not use Living arrangements: with family Gender identity (if verbalized by the patient): Female Spiritual care concerns: No Anes - Eval Final PreProcedure Day of Procedure 03/04/24 09:47 Patient weight: normal Heart: regular rate and rhythm Lungs: clear to auscultation Airway: Mallampati scale class II Neurological: alert and oriented Last oral intake: >/= 8 hours ASA classification: II Emergent: no Anesthetic plan: proceed Anesthesia type and monitoring: general GIVS and standard monitoring Results Review: All pre-operative results and documents have been reviewed as part of the pre- operative evaluation. Informed Consent: The patient's anesthetic plan and its attendant risks and benefits were discussed with the patient/family/POA. Questions were solicited and answers provided to the satisfaction of the patient/family/POA.
--- NOTE | 2024-03-04 09:55 | PM.IMHP ---
H&P: HPI History of Present Illness Date/Time: 03/04/24 09:55 Chief Complaint: dysphagia Narrative: this is a 78-year-old presents for upper endoscopy. She has been experiencing intermittent dysphagia with solids and liquids over the past several years. She also occasionally complains Of acid reflux. She denies any hematemesis melena. Review of Systems Review of Systems: All systems reviewed & are unremarkable except as noted in HPI and below Constitutional: Constitutional: Denies chills, Denies fever(s), Denies headache(s) and Denies weight loss Eyes: Eyes: Denies change in vision ENT: Denies dizziness, Denies headache(s), Denies neck mass and Denies throat swelling Cardiovascular: Cardiovascular: Denies chest pain, Denies lightheadedness and Denies dyspnea Respiratory: Respiratory: Denies cough, Denies dyspnea and Denies wheezing Gastrointestinal: Gastrointestinal: Denies abdominal pain, Denies change in bowel habits, Denies nausea and Denies vomiting Genitourinary: Genitourinary: Denies hematuria and Denies dysuria Musculoskeletal: Musculoskeletal: Reports as per HPI Integumentary/Breasts: Skin/Breast: Reports as per HPI Neurologic: Denies dizziness and Denies headache(s) Allergic/Immunologic: Allergic/Immunologic: Denies throat swelling and Denies wheezing PMFSH Past Medical History Medical History HLD (hyperlipidemia) HTN (hypertension) Social History Social History Smoking status: Never smoker Substance use type: does not use Living arrangements: with family Gender identity (if verbalized by the patient): Female Spiritual care concerns: No Meds Home Medications and Allergies Home Medications Medication Instructions Recorded Confirmed Type ergocalciferol (vitamin D2) 1,250 1,250 mcg PO DAILY 10/20/20 03/04/24 History mcg (50,000 unit) capsule pravastatin 10 mg tablet 10 mg PO DAILY 10/20/20 03/04/24 History amlodipine 10 mg tablet 10 mg PO DAILY 11/18/23 03/04/24 History Nexium 20 mg PO DAILY 02/20/24 03/04/24 History Allergies Allergy/AdvReac Type Severity Reaction Status Date / Time No Known Allergies Allergy Verified 03/04/24 09:17 Vital Signs Vital Signs - 24 hr 03/04/24 09:19 Temperature 35.9 C L Respiratory Rate 16 Blood Pressure 132/64 Pulse Oximetry 99 Oxygen Delivery Room Air Exam Const: General: no acute distress and alert Orientation/consciousness: patient oriented x3 HENMT: Head: normocephalic and atraumatic Ears: hearing grossly normal bilaterally Face/Nose/Sinus: Normal nares present Mouth: Yes Normal oral and palatal mucosa present Eyes: Periorbital: periorbital findings normal Sclera: sclerae normal EOM: EOMs intact bilaterally Neck: Neck: normal visual inspection, no lymphadenopathy and trachea midline Chest: Chest palpation & inspection: normal inspection of the chest Resp: Effort & Inspection: normal respiratory effort Auscultation: clear to auscultation bilaterally Cardio: Jugular venous distension: no JVD Rate: regular rate Rhythm: regular rhythm Heart sounds: S1 normal heart sound present and S2 normal heart sound present Peripheral pulses: Peripheral pulses 2+ throughout GI: Inspection: normal to inspection GI Palp: Yes Soft to palpation, No Tenderness to palpation present (GI), No Guarding due to palpation present (GI) and No Rebound tenderness present Percussion: Yes normal to percussion Auscultation: normal bowel sounds : General: Yes no CVA tenderness Back/Spine/Pelvis: Back: no CVA tenderness Neuro: General: patient oriented x3, no focal motor deficits and CN's II-XI intact bilaterally Cognition (Neuro): normal cognition Speech: normal speech Motor exam (neuro): 5/5 motor strength present throughout Extrem: General: capillary refill normal and no clubbing, cyanosis or edema Assessmen
[2024-03-04 10:21] VITALS: BP 110/61; PULSE 77; RESP 19; O2SAT 96
[2024-03-04 10:31] VITALS: BP 107/60; PULSE 67; RESP 20; O2SAT 96
[2024-03-04 10:43] VITALS: BP 114/65; PULSE 67; RESP 16; O2SAT 95
== END 2024-03-04 10:48 | disposition home or self-care (01) ==
PROVIDERS: PCP Internal Medicine; Visit Provider Surgery
PROC: 0DJ08ZZ Inspection of Upper Intestinal Tract, Via Natural or Artificial Opening Endoscopic (ICD-10-PCS; CPT 43235; principal; 2024-03-04 11:00)
DX: K21.00 Gastro-esophageal reflux disease with esophagitis, without bleeding (principal); K29.30 Chronic superficial gastritis without bleeding; I10 Essential (primary) hypertension; E78.5 Hyperlipidemia, unspecified
CPT/HCPCS: 43239; 87081; 88305; J2001; J2704; J7120

== ENCOUNTER 2024-06-07 14:31 | Outpatient (CLI) | payer OTHER, SELFPAY ==
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
[2024-06-07 14:56] LABS: Hematocrit 36.9 % (35.0-42.0); Hemoglobin 12.6 g/dL (11.7-13.8); Mean Corpuscular HGB Conc 34.1 g/dL (32-36); Mean Corpuscular Hemoglobin 32.3 pg (27.0-31.0); Mean Corpuscular Volume 94.6 fL (78.0-102.0); Mean Platelet Volume 10.5 fl (9.2-11.8); Platelet Count Result 231 K/mm3 (150-420); Red Cell Distribution Width 11.8 % (11.6-14.4); White Blood Count 5.7 K/mm3 (4.8-10.8)
[2024-06-07 15:00] LABS: Appearance Urine Clear (Clear); Bilirubin Urine Negative (Negative); Blood Urine Negative (Negative); Color Urine Light Yellow (Yellow); Glucose Urine UA Negative (Negative); Ketones Urine Negative (Negative); Leukocyte Esterase Ur Trace LEU/UL (Negative); Nitrate Urine Negative (Negative); Protein Urine Negative (Negative); Urobilinogen Urine 0.2 mg/dL (0.2-1.0); pH Urine 5.5 (5.0-8.0)
[2024-06-07 15:09] LABS: Add Urine Microscopic? YES; RBC Urine None seen /hpf (0-2); Squamous Epithelial Cell Urine Few /hpf (Few); WBC Urine 0-3 /hpf (0-3)
[2024-06-07 15:10] LABS: Bacteria Urine None seen /hpf; Mucus Urine Few /lpf
[2024-06-07 15:16] LABS: Anion Gap 8 mmol/L (4-12); Blood Urea Nitrogen 27 mg/dL (7-18); Calcium 9.8 mg/dL (8.5-10.1); Carbon Dioxide 29 mmol/L (21-32); Chloride 100 mmol/L (98-108); Estimated Glomerular Filt Rate 38; Glucose 87 mg/dL (70-99); Osmolality Calculated 288 mOsm/kg (285-295); Potassium 3.8 mmol/L (3.5-5.1); Sodium 137 mmol/L (136-145)
== END 2024-06-07 14:32 | disposition home or self-care (01) ==
LOC: CHSLAB 14:41
PROVIDERS: PCP Internal Medicine; Visit Provider Internal Medicine
DX: S22.20XA Unspecified fracture of sternum, initial encounter for closed fracture (principal); N39.0 Urinary tract infection, site not specified; R06.00 Dyspnea, unspecified; R07.9 Chest pain, unspecified
CPT/HCPCS: 36415; 71260; 80048; 81001; 85027; Q9967

== ENCOUNTER 2024-06-15 09:20 | Outpatient (CLI) | payer OTHER, SELFPAY ==
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
== END 2024-06-15 09:21 | disposition home or self-care (01) ==
PROVIDERS: PCP Internal Medicine; Visit Provider Internal Medicine
DX: S99.921A Unspecified injury of right foot, initial encounter (principal)
CPT/HCPCS: 73630

== ENCOUNTER 2024-07-07 09:35 | Outpatient (CLI) | payer MEDICARE, SELFPAY ==
--- NOTE | ~2024-07-07 | US_ITS ---
EXAMINATION: US renal BI DATE: 07/07/2024 10:12 INDICATION: Stage III chronic kidney disease TECHNIQUE: Multiple ultrasound grayscale images of the kidneys were obtained. COMPARISON: None. FINDINGS: The right kidney measures 8.4 x 3.4 x 5.1 cm. The left kidney measures 10.1 x 3.8 x 5.1 cm. The kidne ys demonstrate normal echogenicity. There is no hydronephrosis in either kidney. No stones identifie d. The bladder is normal. IMPRESSION: 1. Normal kidneys without hydronephrosis. Reviewed, dictated and finalized at location A.
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
[2024-07-07 10:44] LABS: Anion Gap 8 mmol/L (4-12); Blood Urea Nitrogen 25 mg/dL (7-18); Carbon Dioxide 28 mmol/L (21-32); Chloride 98 mmol/L (98-108); Estimated Glomerular Filt Rate 37; Free T3 2.38 pg/mL (2.18-3.98); Free T4 Free Thyroxine 0.94 ng/dL (0.76-1.46); Glucose 88 mg/dL (70-99); Osmolality Calculated 281 mOsm/kg (285-295); Potassium 4.5 mmol/L (3.5-5.1); Sodium 134 mmol/L (136-145); Thyroid Stimulating Hormone 3.25 uIU/mL (0.36-3.74)
== END 2024-07-07 09:36 | disposition home or self-care (01) ==
PROVIDERS: PCP Internal Medicine; Visit Provider Internal Medicine
DX: M18.30 Unilateral post-traumatic osteoarthritis of first carpometacarpal joint, unspecified hand (principal); I10 Essential (primary) hypertension
CPT/HCPCS: 36415; 71120; 76775; 80048; 84439; 84443; 84481

== ENCOUNTER 2024-08-12 11:18 | Outpatient (CLI) | payer MEDICARE, SELFPAY ==
[2024-08-12 12:26] LABS: Anion Gap 11 mmol/L (4-12); Blood Urea Nitrogen 26 mg/dL (7-18); Calcium 8.9 mg/dL (8.5-10.1); Carbon Dioxide 26 mmol/L (21-32); Chloride 103 mmol/L (98-108); Estimated Glomerular Filt Rate 32; Glucose 95 mg/dL (70-99); Osmolality Calculated 294 mOsm/kg (285-295); Potassium 4.3 mmol/L (3.5-5.1); Sodium 140 mmol/L (136-145)
[2024-08-13 13:06] LABS: Complement C3 145 mg/dL (83-193)
[2024-08-13 15:18] LABS: Complement Total CH50 >60 U/mL (31-60)
[2024-08-14 11:14] LABS: Creatinine, Random Urine 198 mg/dL (20-275); Total Prot/Creat ratio mg/mg 0.081 (0.024-0.184); Total Protein/Creatinine Ratio 81 mg/g creat (24-184)
[2024-08-18 16:19] LABS: Kappa\\Lambda Light Chains 1.83 (0.26-1.65); Lambda Light Chain 11.1 mg/L (5.7-26.3)
[2024-08-19 15:13] LABS: Albumin 4.4 g/dL (3.8-4.8); Alpha 1 Globulin 0.3 g/dL (0.2-0.3); Alpha 2 Globulin 0.8 g/dL (0.5-0.9); Beta 1 Globulin 0.4 g/dL (0.4-0.6); Gamma Globulin 0.8 g/dL (0.8-1.7)
[2024-08-19 21:39] LABS: Immunofixation, Serum Normal pattern.
== END 2024-08-12 11:19 | disposition home or self-care (01) ==
PROVIDERS: PCP Internal Medicine; Visit Provider Internal Medicine
DX: I10 Essential (primary) hypertension (principal)
CPT/HCPCS: 36415; 80048; 82570; 83883; 84155; 84156; 84165; 84166; 86038; 86039; 86160; 86162; 86334

== ENCOUNTER 2024-08-25 08:13 | Outpatient (CLI) | payer MEDICARE, SELFPAY ==
[2024-08-25 09:52] LABS: Anion Gap 9 mmol/L (4-12); Blood Urea Nitrogen 22 mg/dL (7-18); Calcium 8.8 mg/dL (8.5-10.1); Carbon Dioxide 27 mmol/L (21-32); Chloride 102 mmol/L (98-108); Estimated Glomerular Filt Rate 35; Glucose 98 mg/dL (70-99); Osmolality Calculated 289 mOsm/kg (285-295); Potassium 4.3 mmol/L (3.5-5.1); Sodium 138 mmol/L (136-145)
== END 2024-08-25 08:14 | disposition home or self-care (01) ==
PROVIDERS: PCP Internal Medicine; Visit Provider Internal Medicine
DX: E86.0 Dehydration (principal)
CPT/HCPCS: 36415; 80048

== ENCOUNTER 2024-10-11 09:51 | Outpatient (CLI) | payer MEDICARE, SELFPAY ==
[2024-10-11 10:04] LABS: Basophils Absolute Auto 0.06 K/mm3 (0.00-0.10); Basophils Percent Auto 1.3 % (0.0-1.0); Eosinophils Absolute Auto 0.22 K/mm3 (0.02-0.50); Eosinophils Percent Auto 4.6 % (1.0-6.0); Hematocrit 36.7 % (35.0-42.0); Hemoglobin 12.9 g/dL (11.7-13.8); Immature Granulocyte Absolute 0.01 K/mm3 (0.00-0.00); Immature Granulocyte Percent A 0.2 % (0.0-0.0); Lymphocytes Absolute Auto 1.62 K/mm3 (1.10-4.50); Lymphocytes Percent Auto 33.8 % (18.0-42.0); Mean Corpuscular HGB Conc 35.1 g/dL (32-36); Mean Corpuscular Hemoglobin 33.2 pg (27.0-31.0); Mean Corpuscular Volume 94.3 fL (78.0-102.0); Mean Platelet Volume 9.9 fl (9.2-11.8); Monocytes Absolute Auto 0.39 K/mm3 (0.10-0.90); Monocytes Percent Auto 8.1 % (2.0-11.0); Neutrophils Absolute Auto 2.49 K/mm3 (1.70-7.20); Platelet Count Result 226 K/mm3 (150-420); Red Blood Count 3.89 M/mm3 (4.20-5.40); Red Cell Distribution Width 11.8 % (11.6-14.4); White Blood Count 4.8 K/mm3 (4.8-10.8)
[2024-10-11 10:07] LABS: Add Urine Microscopic? YES; Appearance Urine Clear (Clear); Bilirubin Urine Negative (Negative); Blood Urine Negative (Negative); Color Urine Light Yellow (Yellow); Glucose Urine UA Negative (Negative); Ketones Urine Negative (Negative); Leukocyte Esterase Ur 1+ (Negative); Nitrate Urine Negative (Negative); Protein Urine Negative (Negative); Specific Grav Ur 1.015 (1.010-1.020); Urobilinogen Urine 0.2 mg/dL (0.2-1.0)
[2024-10-11 10:13] LABS: RBC Urine None seen /hpf (0-2); Squamous Epithelial Cell Urine Rare /hpf (Few); WBC Urine None seen /hpf (0-3)
[2024-10-11 10:14] LABS: Bacteria Urine Rare /hpf
[2024-10-11 10:42] LABS: Alanine Aminotransferase 23 U/L (14-59); Alkaline Phosphatase 49 U/L (46-116); Anion Gap 9 mmol/L (4-12); Aspartate Amino Transferase 16 U/L (15-37); Bilirubin,Total 0.5 mg/dL (0.00-1.00); Blood Urea Nitrogen 25 mg/dL (7-18); Calcium 9.5 mg/dL (8.5-10.1); Carbon Dioxide 29 mmol/L (21-32); Chloride 105 mmol/L (98-108); Cholesterol 274 mg/dL (0-200); Estimated Glomerular Filt Rate 40; Glucose 95 mg/dL (70-99); HDL Direct 58 mg/dL (40-60); LDL Cholesterol Calculated 188 mg/dL (<130); Osmolality Calculated 300 mOsm/kg (285-295); Potassium 5.1 mmol/L (3.5-5.1); Sodium 143 mmol/L (136-145); Total Protein 6.8 g/dL (6.4-8.2); Triglycerides 139 mg/dL (0-150)
== END 2024-10-11 09:52 | disposition home or self-care (01) ==
PROVIDERS: PCP Internal Medicine; Visit Provider Internal Medicine
DX: E78.2 Mixed hyperlipidemia (principal); I10 Essential (primary) hypertension
CPT/HCPCS: 36415; 80053; 80061; 81001; 82172; 83695; 85025

== ENCOUNTER 2024-12-27 12:19 | Outpatient (CLI) | payer MEDICARE, SELFPAY ==
--- NOTE | ~2024-12-27 | MM_ITS ---
EXAMINATION: MM screening [facility] BI w marshal HISTORY: Screening mammogram TECHNIQUE: Craniocaudal and mediolateral oblique 3-D tomosynthesis images were obtained and synthetic 2-D images were generated. CAD analysis was submitted and interpreted. COMPARISON: 11/07/2023, 10/15/2022, 12/07/2019 BREAST PARENCHYMAL COMPOSITION:Not Dense. There are scattered areas of fibroglandular density. FINDINGS: No suspicious mass, calcification, or architectural distortion are identified in either jenise ast to suggest malignancy. There has been no suspicious interval change. IMPRESSION: No mammographic evidence of malignancy. Recommend routine screening mammography in one year. BI-RADS Category 1: Negative Reviewed, dictated and finalized at location . I DISCIPLINED LANGUAGE ANALYST
--- NOTE | ~2024-12-27 | DEXA_ITS ---
Bone Density Report Name: PLACIDO DIETZ Age: 79 Sex: Female Ethnicity: White Date of : 1945 Indication: postmenopausal osteoporosis; monitoring treatment; height loss; Referring Provider: Alfonso Albarran Study: Bone densitometry was performed. Exam Date: December 27, 2024 Accession number: [id number] Bone Density: Region BMD T-score Z-score Classification AP Spine(L1-L4) 0.708 -3.1 -0.5 Osteoporosis Femoral Neck (Left) 0.519 -3.0 -0.7 Osteoporosis Total Hip (Left) 0.718 -1.8 0.2 Osteopenia Femoral Neck (Right) 0.485 -3.3 -1.0 Osteoporosis Total Hip (Right) 0.697 -2.0 0.0 Osteopenia Femoral Neck Mean 0.502 -3.1 -0.9 Osteoporosis Total Hip Mean 0.707 -1.9 0.1 Osteopenia World Health Organization criteria for BMD impression classify patients as: Normal (T-score at or above -1.0), Osteopenia (T-score between -1.0 and -2.5), or Osteoporosis (T-score at or below -2.5). 10-year Fracture Risk: FRAX not reported because: Some T-score for Spine Total or Hip Total or Femoral Neck at or below -2.5 Treated for osteoporosis Previous Exams: Region Exam Age BMD T-score BMD Change BMD Change Date g/cm2 vs Baseline vs Previous AP Spine (L1-L4) 12/27/2024 79 0.708 -3.1 -0.170 (-19.4% -0.009 (-1.2%) 11/07/2023 77 0.717 -3.0 -0.161 (-18.4% 0.020 (2.9%) 08/07/2021 75 0.697 -3.2 -0.181 (-20.6% -0.077 (-9.9%) 04/26/2019 73 0.774 -2.5 -0.105 (-11.9% -0.021 (-2.7%) 04/18/2017 71 0.795 -2.3 -0.083 (-9.5%) -0.028 (-3.4%) 06/17/2014 68 0.823 -2.0 -0.055 (-6.3%) -0.010 (-1.2%) 08/05/2011 65 0.833 -1.9 -0.046 (-5.2%) -0.046 (-5.2%) 10/26/2007 61 0.878 -1.5 Total Hip(Left) 12/27/2024 79 0.718 -1.8 -0.024 (-3.2%) 0.037 (5.5%)* 11/07/2023 77 0.681 -2.1 -0.061 (-8.3%) 0.032 (4.9%)* 08/07/2021 75 0.649 -2.4 -0.093 (-12.6% -0.055 (-7.8%) 04/26/2019 73 0.704 -2.0 -0.039 (-5.2%) 0.015 (2.2%) 04/18/2017 71 0.688 -2.1 -0.054 (-7.3%) -0.004 (-0.5%) 06/17/2014 68 0.692 -2.1 -0.051 (-6.8%) -0.020 (-2.8%) 08/05/2011 65 0.711 -1.9 -0.031 (-4.2%) -0.031 (-4.2%) 10/26/2007 61 0.742 -1.6 Total Hip(Right) 12/27/2024 79 0.697 -2.0 -0.054 (-7.2%) -0.018 (-2.5%) 11/07/2023 77 0.714 -1.9 -0.036 (-4.8%) 0.042 (6.2%)* 08/07/2021 75 0.673 -2.2 -0.078 (-10.4% 0.012 (1.8%)# 04/26/2019 73 0.661 -2.3 -0.090 (-11.9% -0.031 (-4.5%) 06/17/2014 68 0.693 -2.0 -0.058 (-7.8%) -0.052 (-7.0%) 08/05/2011 65 0.745 -1.6 -0.006 (-0.8%) -0.006 (-0.8%) 10/26/2007 61 0.751 -1.6 *Denotes significance at 95% confidence level, LSC for AP Spine = 0.022 g/cm2, LSC for Total Hip = 0.027 g/cm2 # Denotes dissimilar scan types or analysis methods Clinical Information Provided by Patient: Is being treated for osteoporosis Has used the following medications: Fosamax (i.e. alendronate), Reclast (i.e. zoledronate), Vitamin D Patient maximum height was 62 Menopause Age: 37 Does not regularly consume dairy products Onset of menses at age 12 Number of children 2 Impression: The patient has osteoporosis, based on the Right Femoral Neck T-score. No significant bone loss was observed. Discussion: PATIENT UNDER TREATMENT WITH NO SIGNIFICANT BMD LOSS SINCE LAST EXAM. In an untreated patient, BMD typically declines with age. A lack of decline or gain is usually a sign that treatment is efficacious and fracture risk is reduced. It is important to ask patients whether they are taking their medications and to encourage continued and appropriate compliance with their osteoporosis therapies to reduce fracture risk. It is also important to review their risk factors and encourage appropriate calcium and vitamin D intakes, exercise, fall prevention and other lifestyle measures. Follow-Up: Consider a repeat BMD and Vertebral Fracture Assessment (VFA) exam in 2 years or sooner if medically necessary, to reassess this patient's status. Reported by: CATERINA on 12/27/2024 12:52:00 PM. Reviewed, dictated and finalized at location A.
--- OUTSIDE RECORDS SUMMARY | 2024-12-27 13:14 | XMS_ITS | Clinical Summary ---
Author Organization [facility] Address [address] [place] [address]. 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 Gender Identity Not on file Sexual Orientation Not on file Last Filed Vital Signs Vital Sign Reading Time Taken Comments Blood Pressure 109/58 04/22/2014 2:38 PM CDT Pulse - - Temperature - - Respiratory Rate - - Oxygen Saturation - - Inhaled Oxygen Concentration - - Weight 71.7 kg (158 lb) 04/22/2014 2:38 PM CDT Height 154.9 cm (5' 1 ) 04/22/2014 2:41 PM CDT Body Mass Index 29.85 04/22/2014 2:38 PM CDT Plan of Treatment Health Maintenance Due Date Last Done Comments Hepatitis C 1963 DTaP, Tdap and Td Vaccines ( 1 - Tdap) 1964 Zoster Vaccines (1 of 2) 1995 Dexa Scan (General) 2010 Pneumococcal Vaccine: 65+ Ye ars (1 of 1 - PCV) 2010 RSV Immunization or 60+ Years (1 - 1-dose 75+ series) 2020 COVID-19 Vaccine ( - 2023-2 5 season) 2024 Influenza Adult (#1) 2024 Meningococcal B Vaccine Aged Out No l onger eligible based on patient's age to complete this topic Meningococcal Vaccine Aged Out No johnie jerry eligible based on patient's age to complete this topic RSV Immunizations Under 20 Months Aged Out No longer eligible based on patient's age to complete this topic
--- OUTSIDE RECORDS SUMMARY | 2024-12-27 13:14 | XMS_ITS | Referral Summary ---
Author Organization [facility] Address [address] [place] [address] Care Team Providers Care Instrument Mechanic Weapons System Name Role Phone Alfonso Albarran MD Primary Care Provider + [phone] Tray Siddiqui MD Unavailable [phone] Allergies Active Allergy Reactions Criticality Noted Date Comments Alendronate Anaphylaxis High 06/28/2020 Had difficulty swolling Medications VITAMIN D2 50,000 unit capsuleIndicati ons:stopped taking 01/13/19 Take 1 capsule (50,000 Units total) by mouth every 30 (thirty) days 8 Active pravastatin (PRAVACHOL) 10 mg tabletIndicatio ns:hyperlipidem ia,stopped taking 01/13/19 Take 1 tablet (10 mg total) by mouth retail event coordinator before breakfast Active amLODIPine (NORVASC) 5 mg tablet Take 1 tablet (5 mg total) by mouth daily 3 Active Active Problems Problem Noted Date Diagnosed Date Sensorineural hearing loss (SNHL) of both ears 0 03/12/2024 Hallux rigidus of left foot 09/29/2021 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 Hx amblyopia OD (BCVA 20/50 previously). 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 Ramirez in the near future PLAN: -RTC [address] Ramirez to discuss possible CE OD Assessment & Plan (07/09/2019 12:58 PM CDT): 4 months follow-up Pseudophakia OS (Toric IOL 01/26/19), Cataract OD. Patient states vision stable, no eye pain. Residual astigmatism in right eye (OD) with NS Defer cataract extraction (CE) for now and may consider toric lens as well (hx of amblyopia ? right eye (OD)) left eye (OS); toric intraocular lens (IOL) in place and Quiet ant seg RTC 6 months Assessment & Plan (03/01/2019 2:09 PM CDT): Status post (s/p) toric IOL OS on 01/26/19 - IOP good - Patient interested in CEIOL OD. Uncertain visual prognosis or improvement. Assessment & Plan (02/03/2019 9:29 AM CDT): Status post (s/p) toric IOL OS on 01/26/19 -doing well toric rosales in good position -DFE normal IOP stable Continue prednisolone at QID OS -stop ofloxacin RTC in 1 month for MRx and repeat eval, sooner if any problems. Pseudophakia 12/28/2018 Overview (01/25/2019): Added automatically from request for surgery [id number] Assessment & Plan (01/27/2019 7:48 AM LIMOUSINE RENTAL CLERK): Status post (s/p) uncomplicated CEIOL OS with toric (01/26/19) -doing well for day 1 -acceptable IOP, improved vision -prednisolone QID -ofloxacin QID -no heavy lifting/bending/straining -return precautions discussed RTC in 1 week, sooner if problems -dilate at week 1 to evaluate toric position Esotropia 06/29/2018 Assessment & Plan (06/29/2018 2:28 PM CDT): Worsening at distance may represent divergence insufficiency type versus consecutive given h/o strabmismus surgery. Combined forms of age-related cataract of right eye 06/29/2018 Assessment & Plan (02/10/2023 2:44 PM CDT): F/u Pseudophakia OS (Toric IOL 01/26/19), Cataract OD. Hx amblyopia OD (BCVA 20/50 previously). 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 Hx amblyopia OD (BCVA 20/50 previously). 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 Patient states vision stable, no eye pain. Residual astigmatism in right eye (OD) with NS (5D regular astigmatism on pentacam 2017). Defer cataract extraction (CE) for now and may consider toric lens as well - hx amblyopia right eye will limit final visual acuity (VA). left eye (OS); toric intraocular lens (IOL) in place and Quiet ant seg - toric aligned to ~85 degrees (target per op note 94 degrees) +150 SE hyperopic outcome left eye (OS), Adjust calcs accordingly when pt ready for ce/iol OD RTC 12 months, sooner PRN Assessment & Plan (03/01/2019 2:09 PM CDT): Patient interested in cataract surgery OD, appears mild. Refracts to 20/40. May not be ready for surgery. Assessment & Plan (06/29/2018 2:34 PM CDT): Visually significant OS>OD with recent myopic shift. Although symptoms of glare are not prominent, her difficulty reading is concerning to patient. High astigmatism, but patient not concerned with glasses wear post-operatively. Given esotropia without diplopia, patient counseled regarding potential need for prism glasses or strabismus surgery post-operatively. Will need IOLM, and possible A-scan OD given asteroid hyalosis. 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 Notes from Dr. Siddiqui in 2014 show a BCVA of 20/32 and 20/25 OU. Temporal cupping with family history (maternal lineage) of vision problems may represent mitochondrial-lineage disorders resulting in maculopapular bundle dysfunction. Nystagmus, hereditary 06/29/2018 Assessment & Plan (06/29/2018 2:27 PM CDT): Long-standing, worst in left gaze. Left head tilt likely represents compensation. Possibly sensory 2/2 high astigmatism and amblyopia but with history of good VA. Unspecified corneal scar and opacity 06/29/2018 Assessment & Plan (06/29/2018 2:31 PM CDT): OU. Likely not visually significant. 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 Social History Tobacco Use Types Packs/Day Years Used Date Smoking Tobacco: Never Smokeless Tobacco: Never Alcohol Use Standard Drinks/Week Comments Yes 0 (1 standard drink = 0.6 oz pur e alcohol) rare Comments No Sex and Gender Information Value Date Recorded Sex Assigned at Not on file Legal Sex Female 3:26 AM LIMOUSINE RENTAL CLERK Gender Identity Female 09/12/2021 7:05 PM CDT Sexual Orientation Straight 09/12/2021 7: 05 PM CDT Last Filed Vital Signs Vital Sign Reading Time Taken Comments Blood Pressure 126/76 10/21/2023 4:11 PM LIMOUSINE RENTAL CLERK Pulse 64 10/21/2023 4:11 PM LIMOUSINE RENTAL CLERK Temperature 36.3 ??C (97.4 ??F) 10/21/2023 4:11 PM CS T Respiratory Rate 18 03/12/2024 2:43 PM CDT Oxygen Saturation 96% 10/21/2023 4:11 PM LIMOUSINE RENTAL CLERK Inhaled Oxygen Concentration - - Weight 59.9 kg (132 lb) 03/12/2024 2:43 PM CDT Height 152.4 cm (5') 03/12/2024 2:43 PM CDT Body Mass Index 25.78 03/12/2024 2:43 PM CDT Plan of Treatment Not on file Medical Devices Implanted Type Area Fur Matcher Device Identifier Shelf Expiration Date Model / Serial / Lot [employer] [id number] Acrysof Iq Toric Stableforce 6mm 13mm 1 Piece Foldable Aspheric - [id number] - [id number] Implanted:Qty: 1 on 01/26/2019 by Ksenai Reid MD at [facility] Lens Left: Eye [employer] [id number] 10/23/2022 [id number] / [id number] / Astigmatism Iol Acrysoft Toric (Pt Pays) - [id number] Implanted:Qty: 1 on 01/26/2019 by Ksenia Reid MD at [facility] Left: Eye [employer] SN6AT, SN6OT / / Astigmat Iol Acrysoft Toric Avg - [id number] Implanted:Qty: 1 on 01/26/2019 by Ksenia Reid MD at [facility] Left: Eye [employer] SN6AT, SN6OT / / Insurance MEDICARE RAILROAD AET SENIOR SUPPLEMENT MEDICARE RAILROAD AETNA SENIOR SUPPLEMENT Care Teams Instrument Mechanic Weapons System Relationship Specialty Start Date End Date Alfonso Albarran MD [address] [place] [address] PCP - General Internal Medicine 06/23/18 Tray Siddiqui MD [address] [place] [address] Ophthalmology 06/29/18
--- OUTSIDE RECORDS SUMMARY | 2024-12-27 13:14 | XMS_ITS | Clinical Summary ---
Author Organization [facility] Address [address] [place] [address] Care Team Providers Care Oracle Data Warehouse Developer Name Role Phone Alfonso Albarran MD Primary Care Provider + [phone] Tray Siddiqui MD Unavailable [phone] Allergies Active Allergy Reactions Criticality Noted Date Comments Alendronate Anaphylaxis High 06/28/2020 Had difficulty swolling Medications VITAMIN D2 50,000 unit capsuleIndicati ons:stopped taking 01/13/19 Take 1 capsule (50,000 Units total) by mouth every 30 (thirty) days 8 Active pravastatin (PRAVACHOL) 10 mg tabletIndicatio ns:hyperlipidem ia,stopped taking 01/13/19 Take 1 tablet (10 mg total) by mouth documentation writer before breakfast Active amLODIPine (NORVASC) 5 mg [...] (12/28/2018): Added automatically from request for surgery [id number] Assessment & Plan (11/10/2023 10:37 AM MATERIALS HANDLING COORDINATOR): F/u Pseudophakia OS (Toric IOL 01/26/19), Cataract [...] (01/25/2019): Added automatically from request for surgery [id number] Assessment & Plan (01/27/2019 7:48 AM MATERIALS HANDLING COORDINATOR): Status post (s/p) uncomplicated CEIOL OS with [...] eye 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 Surgical History Surgery Date Site/Laterality Comments GALLBLADDER SURGERY 11/24/2011 - 11/23/2012 OTHER SURGICAL HISTORY 11/24/1981 - 11/23/1982 uterus removed STRABISMUS SURGERY CATARACT EXTRACTION Left ANKLE SURGERY 11/24/1988 - 11/23/1989 Left Medical History Medical History Date Comments Cataract Strabismus Nystagmus Hyperlipidemia HTN (hypertension) Family History Medical History Relation Name Comments Heart disease Father Lung cancer Father Cancer Mother Relation Name Status Comments Father Mother Social History Tobacco Use Types Packs/Day Years Used Date Smoking Tobacco: Never Smokeless Tobacco: Never Alcohol Use Standard Drinks/Week Comments Yes 0 (1 standard drink = 0.6 oz pur e alcohol) rare Comments No Sex and Gender Information Value Date Recorded Sex Assigned at Not on file Legal Sex Female 3:26 AM MATERIALS HANDLING COORDINATOR Gender Identity Female 09/12/2021 7:05 PM CDT Sexual Orientation Straight 09/12/2021 7: 05 PM CDT Obstetrics History Last Filed Vital Signs Vital Sign Reading Time Taken Comments Blood Pressure 126/76 10/21/2023 4:11 PM MATERIALS HANDLING COORDINATOR Pulse 64 10/21/2023 4:11 PM MATERIALS HANDLING COORDINATOR Temperature 36.3 ??C (97.4 ??F) 10/21/2023 4:11 PM CS T Respiratory Rate 18 03/12/2024 2:43 PM CDT Oxygen Saturation 96% 10/21/2023 4:11 PM MATERIALS HANDLING COORDINATOR Inhaled Oxygen Concentration - - Weight 59.9 kg (132 lb) 03/12/2024 2:43 PM CDT Height 152.4 cm (5') 03/12/2024 2:43 PM CDT Body Mass Index 25.78 03/12/2024 2:43 PM CDT Plan of Treatment Health Maintenance Due Date Last Done Comments Depression Screening 1945 Fall Risk Assessment 1945 Hepatitis C Screening 1945 Osteoporosis Screening-Bone Density Scan 1945 DTaP/Tdap/Td Vaccine (1 - Tdap) 08/08/2009 9 Well Visit 65+ 2010 Zoster Vaccine (2 of 3) 10/05/2013 08/10/2013 Pneumococcal vaccine 65+ (2 of 2 - PPSV23 or PCV20) 03/26/2017 03/26/2016 Influenza Vaccine (#1) 2024 8, 08/08/2017, 09/11/2016, Additional history exists Medical Devices Implanted Type Area Gate Mortiser Operator Device Identifier Shelf Expiration Date Model / Serial / Lot [employer] [id number] Acrysof Iq Toric Stableforce 6mm 13mm 1 Piece Foldable Aspheric - [id number] - [id number] Implanted:Qty: 1 on 01/26/2019 by Ksenia Reid MD at [facility] Lens Left: Eye [employer] [id number] 10/23/2022 [id number] / [id number] / Astigmatism Iol Acrysoft Toric (Pt Pays) - [id number] Implanted:Qty: 1 on 01/26/2019 by Ksenia Reid MD at [facility] Left: Eye [employer] SN6AT, SN6OT / / Astigmat Iol Acrysoft Toric Avg - [id number] Implanted:Qty: 1 on 01/26/2019 by Ksenia Reid MD at [facility] Left: Eye [employer] SN6AT, SN6OT / / Insurance MEDICARE RAILyoonew AETNA SENIOR SUPPLEMENT MEDICARE RAILROAD AETNA SENIOR SUPPLEMENT Care Teams Oracle Data Warehouse Developer Relationship Specialty Start Date End Date Alfonso Albarran MD [address] [place] [address] PCP - General Internal Medicine 06/23/18 Tray Siddiqui MD [address] [place] [address] [phone] (work) Ophthalmology 06/29/18
== END 2024-12-27 12:20 | disposition home or self-care (01) ==
LOC: CHSIMG 12:21
PROVIDERS: PCP Internal Medicine; Visit Provider Internal Medicine
DX: Z12.31 Encounter for screening mammogram for malignant neoplasm of breast (principal); Z78.0 Asymptomatic menopausal state; M85.89 Other specified disorders of bone density and structure, multiple sites; M81.0 Age-related osteoporosis without current pathological fracture
CPT/HCPCS: 77063; 77067; 77080

== ENCOUNTER 2025-01-18 13:45 | Outpatient (CLI) | payer MEDICARE, SELFPAY ==
[2025-01-18] MEDS: ZOLEDRONIC ACID 5 MG/100 ML 100 ML 400 MG IVPB (14:00)
[2025-01-18 14:10] VITALS: BP 129/69; PULSE 78; RESP 14; TEMP 36.4; O2SAT 97
[2025-01-18 14:25] VITALS: BP 129/77; PULSE 72; RESP 14
--- NOTE | 2025-01-18 14:26 | PC.NURSE ---
Patient here for yearly Reclast infusion. Education given. No concerns voiced. Reports this her 3rd year of getting it and has no problems with it. Infusion administered. SEE MAR/Patient care notes. Tolerated well.
[2025-01-18 14:29] VITALS: BMI 27.7
--- OUTSIDE RECORDS SUMMARY | 2025-01-18 15:54 | XMS_ITS | Clinical Summary ---
Author Organization [facility] Address [address] [place] [address] Care Team Providers Care Wire Inspector Name Role Phone Alfonso Albarran MD Primary Care Provider + [phone] Tray Siddiqui MD Unavailable [phone] Allergies Active Allergy Reactions Criticality Noted Date Comments Alendronate Anaphylaxis High 06/28/2020 Had difficulty swolling Medications VITAMIN D2 50,000 unit capsuleIndicati ons:stopped taking 01/13/19 Take 1 capsule (50,000 Units total) by mouth every 30 (thirty) days 8 Active pravastatin (PRAVACHOL) 10 mg tabletIndicatio ns:hyperlipidem ia,stopped taking 01/13/19 Take 1 tablet (10 mg total) by mouth director of early childhood before breakfast Active amLODIPine (NORVASC) 5 mg [...] (12/28/2018): Added automatically from request for surgery [id number] Assessment & Plan (11/10/2023 10:37 AM CUSTOMER CONSULTING MANAGER): F/u Pseudophakia OS (Toric IOL 01/26/19), Cataract [...] (01/25/2019): Added automatically from request for surgery [id number] Assessment & Plan (01/27/2019 7:48 AM CUSTOMER CONSULTING MANAGER): Status post (s/p) uncomplicated CEIOL OS with [...] on file Legal Sex Female 3:26 AM CUSTOMER CONSULTING MANAGER Gender Identity Female 09/12/2021 7:05 PM CDT Sexual Orientation Straight 09/12/2021 7: 05 PM CDT Obstetrics History Last Filed Vital Signs Vital Sign Reading Time Taken Comments Blood Pressure 126/76 10/21/2023 4:11 PM CUSTOMER CONSULTING MANAGER Pulse 64 10/21/2023 4:11 PM CUSTOMER CONSULTING MANAGER Temperature 36.3 C (97.4 F) 10/21/2023 4:11 PM CUSTOMER CONSULTING MANAGER Respiratory Rate 18 03/12/2024 2:43 PM CDT Oxygen Saturation 96% 10/21/2023 4:11 PM CUSTOMER CONSULTING MANAGER Inhaled Oxygen Concentration - - Weight 59.9 [...] Pneumococcal vaccine 65+ (2 of 2 - PPSV23) 03/26/2017 03/26/2016 Influenza Vaccine (#1) 2024 8, 08/08/2017, 09/11/2016, Additional history exists Hepatitis B Screening Completed 03/01/2008 , 10/19/2007, 09/14/2007 Medical Devices Implanted Type Area Hammer Runner Device Identifier Shelf Expiration Date Model / Serial / Lot [employer] [id number] Acrysof Iq Toric Stableforce 6mm 13mm 1 Piece Foldable Aspheric - [id number] - [id number] Implanted:Qty: 1 on 01/26/2019 by Ksenia Reid MD at [facility] Lens Left: Eye [employer] [id number] 10/23/2022 [id number] / [id number] / Astigmatism Iol Acrysoft Toric (Pt Pays) - [id number] Implanted:Qty: 1 on 01/26/2019 by Ksenia Reid MD at [facility] Left: Eye [employer] SN6AT, SN6OT / / Astigmat Iol Acrysoft Toric Avg - [id number] Implanted:Qty: 1 on 01/26/2019 by Ksenia Reid MD at [facility] Left: Eye [employer] SN6AT, SN6OT / / Insurance MEDICARE [employer] AETNA SENIOR SUPPLEMENT AETNA SENIOR SUPPLEMENT Care Teams Wire Inspector Relationship Specialty Start Date End Date Alfonso Albarran MD [address] [place] [address] PCP - General Internal Medicine 06/23/18 Tray Siddiqui MD [address] [place] [address] Ophthalmology 06/29/18
--- OUTSIDE RECORDS SUMMARY | 2025-01-18 15:54 | XMS_ITS | Referral Summary ---
Author Organization [facility] Address [address] [place] [address] Care Team Providers Care Artificial Teeth Inspector Name Role Phone Alfonso Albarran MD Primary Care Provider + [phone] Tray Siddiqui MD Unavailable [phone] Allergies Active Allergy Reactions Criticality Noted Date Comments Alendronate Anaphylaxis High 06/28/2020 Had difficulty swolling Medications VITAMIN D2 50,000 unit capsuleIndicati ons:stopped taking 01/13/19 Take 1 capsule (50,000 Units total) by mouth every 30 (thirty) days 8 Active pravastatin (PRAVACHOL) 10 mg tabletIndicatio ns:hyperlipidem ia,stopped taking 01/13/19 Take 1 tablet (10 mg total) by mouth liquor maker before breakfast Active amLODIPine (NORVASC) 5 mg [...] (12/28/2018): Added automatically from request for surgery [id number] Assessment & Plan (11/10/2023 10:37 AM STUDIO ASSOCIATE): F/u Pseudophakia OS (Toric IOL 01/26/19), Cataract [...] (01/25/2019): Added automatically from request for surgery [id number] Assessment & Plan (01/27/2019 7:48 AM STUDIO ASSOCIATE): Status post (s/p) uncomplicated CEIOL OS with [...] on file Legal Sex Female 3:26 AM STUDIO ASSOCIATE Gender Identity Female 09/12/2021 7:05 PM CDT Sexual Orientation Straight 09/12/2021 7: 05 PM CDT Last Filed Vital Signs Vital Sign Reading Time Taken Comments Blood Pressure 126/76 10/21/2023 4:11 PM STUDIO ASSOCIATE Pulse 64 10/21/2023 4:11 PM STUDIO ASSOCIATE Temperature 36.3 C (97.4 F) 10/21/2023 4:11 PM STUDIO ASSOCIATE Respiratory Rate 18 03/12/2024 2:43 PM CDT Oxygen Saturation 96% 10/21/2023 4:11 PM STUDIO ASSOCIATE Inhaled Oxygen Concentration - - Weight 59.9 kg (132 lb) 03/12/2024 2:43 PM CDT Height 152.4 cm (5') 03/12/2024 2:43 PM CDT Body Mass Index 25.78 03/12/2024 2:43 PM CDT Plan of Treatment Not on file Medical Devices Implanted Type Area Sand Screener Device Identifier Shelf Expiration Date Model / Serial / Lot Leroy Surgical [id number] Acrysof Iq Toric Stableforce 6mm 13mm 1 Piece Foldable Aspheric - [id number] - [id number] Implanted:Qty: 1 on 01/26/2019 by Ksenia Reid MD at [facility] Advanced Medicine Lens Left: Eye [employer] [id number] 10/23/2022 [id number] / [id number] / Astigmatism Iol Acrysoft Toric (Pt Pays) - [id number] Implanted:Qty: 1 on 01/26/2019 by Ksenia Reid MD at [facility] Advanced Medicine Left: Eye [employer] SN6AT, SN6OT / / Astigmat Iol Acrysoft Toric Avg - [id number] Implanted:Qty: 1 on 01/26/2019 by Ksenia Reid MD at [facility] Advanced Medicine Left: Eye [employer] SN6AT, SN6OT / / Insurance MEDICARE RAILROAD AET SENIOR SUPPLEMENT MEDICARE RAILROAD AETNA SENIOR SUPPLEMENT [place] [id number] Care Teams Artificial Teeth Inspector Relationship Specialty Start Date End Date Alfonso Albarran MD [address] [place] [address] PCP - General Internal Medicine 06/23/18 Tray Siddiqui MD [address] [place] [address] Ophthalmology 06/29/18
--- OUTSIDE RECORDS SUMMARY | 2025-01-18 15:54 | XMS_ITS | Clinical Summary ---
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
== END 2025-01-18 13:46 | disposition home or self-care (01) ==
PROVIDERS: PCP Internal Medicine; Visit Provider Internal Medicine
DX: M81.0 Age-related osteoporosis without current pathological fracture (principal)
CPT/HCPCS: 96374; J3489

== ENCOUNTER 2025-02-09 08:14 | Outpatient (CLI) | payer MEDICARE, SELFPAY ==
--- OUTSIDE RECORDS SUMMARY | 2025-02-09 08:29 | XMS_ITS | Clinical Summary ---
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
--- OUTSIDE RECORDS SUMMARY | 2025-02-09 08:30 | XMS_ITS | Clinical Summary ---
Author Organization [facility] Address [address] [place] [address] Care Team Providers Care Chisel Mortiser Operator Name Role Phone Alfonso Albarran MD Primary Care Provider + [phone] Tray Siddiqui MD Unavailable [phone] Allergies Active Allergy Reactions Criticality Noted Date Comments Alendronate Anaphylaxis High 06/28/2020 Had difficulty swolling Medications VITAMIN D2 50,000 unit capsuleIndicati ons:stopped taking 01/13/19 Take 1 capsule (50,000 Units total) by mouth every 30 (thirty) days 8 Active pravastatin (PRAVACHOL) 10 mg tabletIndicatio ns:hyperlipidem ia,stopped taking 01/13/19 Take 1 tablet (10 mg total) by mouth residential aide before breakfast Active amLODIPine (NORVASC) 5 mg [...] (12/28/2018): Added automatically from request for surgery [id number] Assessment & Plan (11/10/2023 10:37 AM WOOD BARREL RECONDITIONER): F/u Pseudophakia OS (Toric IOL 01/26/19), Cataract [...] (01/25/2019): Added automatically from request for surgery [id number] Assessment & Plan (01/27/2019 7:48 AM WOOD BARREL RECONDITIONER): Status post (s/p) uncomplicated CEIOL OS with [...] on file Legal Sex Female 3:26 AM WOOD BARREL RECONDITIONER Gender Identity Female 09/12/2021 7:05 PM CDT Sexual Orientation Straight 09/12/2021 7: 05 PM CDT Obstetrics History Last Filed Vital Signs Vital Sign Reading Time Taken Comments Blood Pressure 126/76 10/21/2023 4:11 PM WOOD BARREL RECONDITIONER Pulse 64 10/21/2023 4:11 PM WOOD BARREL RECONDITIONER Temperature 36.3 C (97.4 F) 10/21/2023 4:11 PM WOOD BARREL RECONDITIONER Respiratory Rate 18 03/12/2024 2:43 PM CDT Oxygen Saturation 96% 10/21/2023 4:11 PM WOOD BARREL RECONDITIONER Inhaled Oxygen Concentration - - Weight 59.9 [...] 10/19/2007, 09/14/2007 Medical Devices Implanted Type Area Soil Fertility Extension Specialist Device Identifier Shelf Expiration Date Model / Serial / Lot [employer] Surgical [id number] Acrysof Iq Toric Stableforce 6mm 13mm 1 Piece Foldable Aspheric - [id number] - [id number] Implanted:Qty: 1 on 01/26/2019 by Ksenia Reid MD at [facility] Advanced Medicine Lens Left: Eye [employer] [id number] 10/23/2022 [id number] .5 / [id number] / Astigmatism Iol Acrysoft Toric (Pt Pays) - [id number] Implanted:Qty: 1 on 01/26/2019 by Ksenia Reid MD at [facility] Medicine Left: Eye [employer] SN6AT, SN6OT / / Astigmat Iol Acrysoft Toric Avg - [id number] Implanted:Qty: 1 on 01/26/2019 by Ksenia Reid MD at [facility] Left: Eye [employer] SN6AT, SN6OT / / Insurance MEDICARE [email or web address] AETNA SENIOR SUPPLEMENT AETNA SENIOR SUPPLEMENT Care Teams Chisel Mortiser Operator Relationship Specialty Start Date End Date Alfonso Albarran MD [address] [place] [address] PCP - General Internal Medicine 06/23/18 Tray Siddiqui MD [address] [place] [address] Ophthalmology 06/29/18
--- OUTSIDE RECORDS SUMMARY | 2025-02-09 08:30 | XMS_ITS | Referral Summary ---
Author Organization [facility] Address [address] [place] [address] Care Team Providers Care Shellfish Farming Supervisor Name Role Phone Alfonso Albarran MD Primary Care Provider + [phone] Tray Siddiqui MD Unavailable [phone] Allergies Active Allergy Reactions Criticality Noted Date Comments Alendronate Anaphylaxis High 06/28/2020 Had difficulty swolling Medications VITAMIN D2 50,000 unit capsuleIndicati ons:stopped taking 01/13/19 Take 1 capsule (50,000 Units total) by mouth every 30 (thirty) days 8 Active pravastatin (PRAVACHOL) 10 mg tabletIndicatio ns:hyperlipidem ia,stopped taking 01/13/19 Take 1 tablet (10 mg total) by mouth early childhood education specialist before breakfast Active amLODIPine (NORVASC) 5 mg [...] (12/28/2018): Added automatically from request for surgery [id number] Assessment & Plan (11/10/2023 10:37 AM SWATCH CUTTER): F/u Pseudophakia OS (Toric IOL 01/26/19), Cataract [...] (01/25/2019): Added automatically from request for surgery [id number] Assessment & Plan (01/27/2019 7:48 AM SWATCH CUTTER): Status post (s/p) uncomplicated CEIOL OS with [...] on file Legal Sex Female 3:26 AM SWATCH CUTTER Gender Identity Female 09/12/2021 7:05 PM CDT Sexual Orientation Straight 09/12/2021 7: 05 PM CDT Last Filed Vital Signs Vital Sign Reading Time Taken Comments Blood Pressure 126/76 10/21/2023 4:11 PM SWATCH CUTTER Pulse 64 10/21/2023 4:11 PM SWATCH CUTTER Temperature 36.3 C (97.4 F) 10/21/2023 4:11 PM SWATCH CUTTER Respiratory Rate 18 03/12/2024 2:43 PM CDT Oxygen Saturation 96% 10/21/2023 4:11 PM SWATCH CUTTER Inhaled Oxygen Concentration - - Weight 59.9 kg (132 lb) 03/12/2024 2:43 PM CDT Height 152.4 cm (5') 03/12/2024 2:43 PM CDT Body Mass Index 25.78 03/12/2024 2:43 PM CDT Plan of Treatment Not on file Medical Devices Implanted Type Area Leasing Representative Device Identifier Shelf Expiration Date Model / Serial / Lot [employer] [id number] Acrysof Iq Toric Stableforce 6mm 13mm 1 Piece Foldable Aspheric - [id number] - [id number] Implanted:Qty: 1 on 01/26/2019 by Ksenia Reid MD at [facility] Advanced Medicine Lens Left: Eye [employer] [id number] 10/23/2022 [id number] .5 / [id number] / Astigmatism Iol Acrysoft Toric (Pt Pays) - [id number] Implanted:Qty: 1 on 01/26/2019 by Ksenia Reid MD at [facility] Advanced Medicine Left: Eye [employer] SN6AT, SN6OT / / Astigmat Iol Acrysoft Toric Avg - [id number] Implanted:Qty: 1 on 01/26/2019 by Ksenia Reid MD at [facility] Advanced Medicine Left: Eye [employer] SN6AT, SN6OT / / Insurance MEDICARE RAILROAD AET SENIOR SUPPLEMENT MEDICARE RAILROAD AETNA SENIOR SUPPLEMENT [place] [id number] Care Teams Shellfish Farming Supervisor Relationship Specialty Start Date End Date Alfonso Albarran MD [address] [place] [address] PCP - General Internal Medicine 06/23/18 Tray Siddiqui MD [address] [place] [address] Ophthalmology 06/29/18
[2025-02-09 09:19] LABS: Alanine Aminotransferase 24 U/L (14-59); Albumin Level 4.2 g/dL (3.4-5.0); Alkaline Phosphatase 49 U/L (46-116); Anion Gap 10 mmol/L (4-12); Aspartate Amino Transferase 16 U/L (15-37); Bilirubin,Total 0.5 mg/dL (0.00-1.00); Blood Urea Nitrogen 24 mg/dL (7-18); Calcium 9.5 mg/dL (8.5-10.1); Carbon Dioxide 28 mmol/L (21-32); Chloride 105 mmol/L (98-108); Cholesterol 217 mg/dL (0-200); Creatine Kinase 55 U/L (26-192); Estimated Glomerular Filt Rate 32; Glucose 95 mg/dL (70-99); HDL Direct 62 mg/dL (40-60); LDL Cholesterol Calculated 134 mg/dL (<130); Osmolality Calculated 300 mOsm/kg (285-295); Potassium 4.1 mmol/L (3.5-5.1); Sodium 143 mmol/L (136-145); Triglycerides 104 mg/dL (0-150)
== END 2025-02-09 08:15 | disposition home or self-care (01) ==
PROVIDERS: PCP Internal Medicine; Visit Provider Internal Medicine
DX: N18.30 Chronic kidney disease, stage 3 unspecified (principal); E78.00 Pure hypercholesterolemia, unspecified
CPT/HCPCS: 36415; 80053; 80061; 82550

== ENCOUNTER 2025-03-16 10:58 | Outpatient (CLI) | payer MEDICARE, SELFPAY ==
[2025-03-16 11:10] LABS: Add Urine Microscopic? YES; Appearance Urine Clear (Clear); Bilirubin Urine Negative (Negative); Blood Urine Negative (Negative); Color Urine Light Yellow (Yellow); Glucose Urine UA Negative (Negative); Ketones Urine Negative (Negative); Leukocyte Esterase Ur Trace (Negative); Nitrate Urine Negative (Negative); Protein Urine Negative (Negative); Urobilinogen Urine 0.2 mg/dL (0.2-1.0); pH Urine 5.5 (5.0-8.0)
[2025-03-16 11:20] LABS: Bacteria Urine Rare /hpf; RBC Urine None seen /hpf (0-2); Squamous Epithelial Cell Urine Few /hpf (Few); WBC Urine 0-3 /hpf (0-3)
[2025-03-16 11:55] LABS: Anion Gap 5 mmol/L (4-12); Blood Urea Nitrogen 22 mg/dL (7-18); Calcium 9.5 mg/dL (8.5-10.1); Carbon Dioxide 30 mmol/L (21-32); Chloride 106 mmol/L (98-108); Estimated Glomerular Filt Rate 36; Glucose 90 mg/dL (70-99); Osmolality Calculated 295 mOsm/kg (285-295); Sodium 141 mmol/L (136-145)
--- OUTSIDE RECORDS SUMMARY | 2025-03-16 12:51 | XMS_ITS | Clinical Summary ---
Author Organization [facility] Address [address] [place] [address] Care Team Providers Care Booth Supervisor Name Role Phone Alfonso Albarran MD Primary Care Provider + [phone] Tray Siddiqui MD Unavailable [phone] Allergies Active Allergy Reactions Criticality Noted Date Comments Alendronate Anaphylaxis High 06/28/2020 Had difficulty swolling Medications VITAMIN D2 50,000 unit capsuleIndicati ons:stopped taking 01/13/19 Take 1 capsule (50,000 Units total) by mouth every 30 (thirty) days 8 Active pravastatin (PRAVACHOL) 10 mg tabletIndicatio ns:hyperlipidem ia,stopped taking 01/13/19 Take 1 tablet (10 mg total) by mouth phone circuit operator before breakfast Active amLODIPine (NORVASC) 5 mg [...] (12/28/2018): Added automatically from request for surgery [id number] Assessment & Plan (11/10/2023 10:37 AM PERMASTONE MECHANIC): F/u Pseudophakia OS (Toric IOL 01/26/19), Cataract [...] (01/25/2019): Added automatically from request for surgery [id number] Assessment & Plan (01/27/2019 7:48 AM PERMASTONE MECHANIC): Status post (s/p) uncomplicated CEIOL OS with [...] on file Legal Sex Female 3:26 AM PERMASTONE MECHANIC Gender Identity Female 09/12/2021 7:05 PM CDT Sexual Orientation Straight 09/12/2021 7: 05 PM CDT Obstetrics History Last Filed Vital Signs Vital Sign Reading Time Taken Comments Blood Pressure 126/76 10/21/2023 4:11 PM PERMASTONE MECHANIC Pulse 64 10/21/2023 4:11 PM PERMASTONE MECHANIC Temperature 36.3 C (97.4 F) 10/21/2023 4:11 PM PERMASTONE MECHANIC Respiratory Rate 18 03/12/2024 2:43 PM CDT Oxygen Saturation 96% 10/21/2023 4:11 PM PERMASTONE MECHANIC Inhaled Oxygen Concentration - - Weight 59.9 [...] 2 - PPSV23) 03/26/2017 03/26/2016 Influenza Vaccine (Season Ended) 2025 09/14/2018, 08/08/2017, 09/11/2016, Additional history exists Hepatitis B Screening Completed 03/01/2008 , 10/19/2007, 09/14/2007 Medical Devices Implanted Type Area Rinkman Device Identifier Shelf Expiration Date Model / Serial / Lot [employer] [id number] Acrysof Iq Toric Stableforce 6mm 13mm 1 Piece Foldable Aspheric - [id number] - [id number] Implanted:Qty: 1 on 01/26/2019 by Ksenia Reid MD at [facility] Advanced Medicine Lens Left: Eye [employer] [id number] 10/23/2022 [id number] .5 / [id number] / Astigmatism Iol Acrysoft Toric (Pt Pays) - [id number] Implanted:Qty: 1 on 01/26/2019 by Ksenia Reid MD at [facility] Medicine Left: Eye [employer] SN6AT, SN6OT / / Astigmat Iol Acrysoft Toric Avg - [id number] Implanted:Qty: 1 on 01/26/2019 by Ksenia Reid MD at [facility] Medicine Left: Eye [employer] SN6AT, SN6OT / / Insurance MEDICARE [employer] MEDICARE RAILROAD AETNA SENIOR SUPPLEMENT Care Teams Booth Supervisor Relationship Specialty Start Date End Date Alfonso Albarran MD [address] [place] [address] PCP - General Internal Medicine 06/23/18 Tray Siddiqui MD [address] [place] [address] Ophthalmology 06/29/18
--- OUTSIDE RECORDS SUMMARY | 2025-03-16 12:51 | XMS_ITS | Clinical Summary ---
Author Organization [facility] Address [address] [place] [address] Care Team Providers Care Orthotic/Prosthetic Practitioner Name Role Phone Unavailable Primary Care Provider Unavailabl e Social History Tobacco Use Types Packs/Day Years Used Date Smoking Tobacco: Never Assessed Comments Unknown Sex and Gender Information Value Date Recorded Sex Assigned at Not on file Legal Sex Female 9:39 PM ROUGH ROUNDER Gender Identity Not on file Sexual Orientation [...] Td Vaccines ( 1 - Tdap) 1964 Pneumococcal Vaccine: 50+ Ye ars (1 of 1 - PCV) 1995 Zoster Vaccines (1 of 2) 1995 Dexa Scan (General) 2010 RSV Immunization or 60+ Years (1 - 1-dose 75+ series) 2020 COVID-19 Vaccine ( - 2023-2 5 season) 2024 Meningococcal B Vaccine Aged Out No l onger eligible based on patient's age to complete this topic Meningococcal Vaccine Aged Out No johnie jerry eligible based on patient's age to complete this topic RSV Immunizations Under 20 Months Aged Out No longer eligible based on patient's age to complete this topic
--- OUTSIDE RECORDS SUMMARY | 2025-03-16 12:51 | XMS_ITS | Referral Summary ---
Author Organization [facility] Address [address] [place] [address] Care Team Providers Care Blockmason Name Role Phone Alfonso Albarran MD Primary Care Provider + [phone] Tray Siddiqui MD Unavailable [phone] Allergies Active Allergy Reactions Criticality Noted Date Comments Alendronate Anaphylaxis High 06/28/2020 Had difficulty swolling Medications VITAMIN D2 50,000 unit capsuleIndicati ons:stopped taking 01/13/19 Take 1 capsule (50,000 Units total) by mouth every 30 (thirty) days 8 Active pravastatin (PRAVACHOL) 10 mg tabletIndicatio ns:hyperlipidem ia,stopped taking 01/13/19 Take 1 tablet (10 mg total) by mouth early years teacher before breakfast Active amLODIPine (NORVASC) 5 mg [...] (12/28/2018): Added automatically from request for surgery [id number] Assessment & Plan (11/10/2023 10:37 AM BRICK VENEER MAKER): F/u Pseudophakia OS (Toric IOL 01/26/19), Cataract [...] (01/25/2019): Added automatically from request for surgery [id number] Assessment & Plan (01/27/2019 7:48 AM BRICK VENEER MAKER): Status post (s/p) uncomplicated CEIOL OS with [...] on file Legal Sex Female 3:26 AM BRICK VENEER MAKER Gender Identity Female 09/12/2021 7:05 PM CDT Sexual Orientation Straight 09/12/2021 7: 05 PM CDT Last Filed Vital Signs Vital Sign Reading Time Taken Comments Blood Pressure 126/76 10/21/2023 4:11 PM BRICK VENEER MAKER Pulse 64 10/21/2023 4:11 PM BRICK VENEER MAKER Temperature 36.3 C (97.4 F) 10/21/2023 4:11 PM BRICK VENEER MAKER Respiratory Rate 18 03/12/2024 2:43 PM CDT Oxygen Saturation 96% 10/21/2023 4:11 PM BRICK VENEER MAKER Inhaled Oxygen Concentration - - Weight 59.9 kg (132 lb) 03/12/2024 2:43 PM CDT Height 152.4 cm (5') 03/12/2024 2:43 PM CDT Body Mass Index 25.78 03/12/2024 2:43 PM CDT Plan of Treatment Not on file Medical Devices Implanted Type Area Joint Cutter Machine Device Identifier Shelf Expiration Date Model / Serial / Lot [employer] [id number] Acrysof Iq Toric Stableforce 6mm 13mm 1 Piece Foldable Aspheric - [id number] - [id number] Implanted:Qty: 1 on 01/26/2019 by Ksenia Reid MD at [facility] Advanced Medicine Lens Left: Eye [employer] [id number] 10/23/2022 [id number] .5 / [id number] / Astigmatism Iol Acrysoft Toric (Pt Pays) - [id number] Implanted:Qty: 1 on 01/26/2019 by Ksenia Reid MD at [facility] Advanced Medicine Left: Eye [employer] SN6AT, SN6OT / / Astigmat Iol Acrysoft Toric Avg - [id number] Implanted:Qty: 1 on 01/26/2019 by Ksenia Reid MD at [facility] Left: Eye [employer] SN6AT, SN6OT / / Insurance MEDICARE RAILROAD MEDICARE RAILROAD AETNA SENIOR SUPPLEMENT Care Teams Blockmason Relationship Specialty Start Date End Date Alfonso Albarran MD [address] [place] [address] PCP - General Internal Medicine 06/23/18 Tray Siddiqui MD [address] [place] [address] Ophthalmology 06/29/18
== END 2025-03-16 10:59 | disposition home or self-care (01) ==
PROVIDERS: PCP Internal Medicine; Visit Provider Internal Medicine
DX: I10 Essential (primary) hypertension (principal); N18.4 Chronic kidney disease, stage 4 (severe)
CPT/HCPCS: 36415; 80048; 81001

== ENCOUNTER 2025-05-04 13:06 | Outpatient (CLI) | payer MEDICARE, SELFPAY ==
--- NOTE | ~2025-05-04 | US_ITS ---
Renal-Bladder ultrasound Clinical History: Chronic kidney disease Technique: Real-time sonographic imaging of the kidneys and urinary bladder was performed. Findings: The right kidney measures 7.8 cm in length and the left kidney measures 9.8 cm. There is no hydronephrosis or renal calculus identified. Renal cortical echogenicity is within normal limits. No renal mass lesion is identified. The urinary bladder is moderately distended at the time of this exam. No intraluminal echoes are iden tified. No abnormal wall thickening is seen. Impression: Unremarkable ultrasound of the kidneys and urinary bladder. Reviewed, dictated and finalized at location M. Impression: Unremarkable ultrasound of the kidneys and urinary bladder.
[2025-05-04 13:47] LABS: Hematocrit 35.8 % (35.0-42.0); Hemoglobin 11.9 g/dL (11.7-13.8); Mean Corpuscular HGB Conc 33.2 g/dL (32-36); Mean Corpuscular Hemoglobin 31.7 pg (27.0-31.0); Mean Corpuscular Volume 95.5 fL (78.0-102.0); Mean Platelet Volume 10.7 fl (9.2-11.8); Platelet Count Result 223 K/mm3 (150-420); Red Blood Count 3.75 M/mm3 (4.20-5.40); Red Cell Distribution Width 12.1 % (11.6-14.4); White Blood Count 5.6 K/mm3 (4.8-10.8)
[2025-05-04 14:42] LABS: Alanine Aminotransferase 21 U/L (6-35); Albumin Level 4.8 g/dL (3.5-5.1); Anion Gap 8 mmol/L (4-12); Blood Urea Nitrogen 18 mg/dL (7-17); Calcium 9.3 mg/dL (8.4-10.2); Carbon Dioxide 25 mmol/L (22-30); Chloride 105 mmol/L (98-107); Creatine Kinase 61 U/L (30-135); Estimated Glomerular Filt Rate 43; Glucose 110 mg/dL (65-110); Osmolality Calculated 288 mOsm/kg (285-295); Phosphorus 3.4 mg/dL (2.5-4.5); Potassium 4.4 mmol/L (3.4-5.0); Sodium 138 mmol/L (137-145)
[2025-05-04 14:53] LABS: LDL Cholesterol Direct 125 mg/dL
[2025-05-04 15:06] LABS: Erythrocyte Sedimentation Rate 28 mm/hr (0-20)
--- OUTSIDE RECORDS SUMMARY | 2025-05-04 15:17 | XMS_ITS | Referral Summary ---
Author Organization [facility] Address [address] [place] [address] Care Team Providers Care Funeral Director/Embalmer Name Role Phone Alfonso Albarran MD Primary Care Provider + [phone] Tray Siddiqui MD Unavailable [phone] Allergies Active Allergy Reactions Criticality Noted Date Comments Alendronate Anaphylaxis High 06/28/2020 Had difficulty swolling Medications VITAMIN D2 50,000 unit capsuleIndicati ons:stopped taking 01/13/19 Take 1 capsule (50,000 Units total) by mouth every 30 (thirty) days 8 Active pravastatin (PRAVACHOL) 10 mg tabletIndicatio ns:hyperlipidem ia,stopped taking 01/13/19 Take 1 tablet (10 mg total) by mouth fish checker before breakfast Active amLODIPine (NORVASC) 5 mg [...] (12/28/2018): Added automatically from request for surgery [id number] Assessment & Plan (11/10/2023 10:37 AM DISTRICT OR DISTRICT OFFICE DIRECTOR): F/u Pseudophakia OS (Toric IOL 01/26/19), Cataract [...] (01/25/2019): Added automatically from request for surgery [id number] Assessment & Plan (01/27/2019 7:48 AM DISTRICT OR DISTRICT OFFICE DIRECTOR): Status post (s/p) uncomplicated CEIOL OS with [...] on file Legal Sex Female 3:26 AM DISTRICT OR DISTRICT OFFICE DIRECTOR Gender Identity Female 09/12/2021 7:05 PM CDT Sexual Orientation Straight 09/12/2021 7: 05 PM CDT Last Filed Vital Signs Vital Sign Reading Time Taken Comments Blood Pressure 126/76 10/21/2023 4:11 PM DISTRICT OR DISTRICT OFFICE DIRECTOR Pulse 64 10/21/2023 4:11 PM DISTRICT OR DISTRICT OFFICE DIRECTOR Temperature 36.3 C (97.4 F) 10/21/2023 4:11 PM DISTRICT OR DISTRICT OFFICE DIRECTOR Respiratory Rate 18 03/12/2024 2:43 PM CDT Oxygen Saturation 96% 10/21/2023 4:11 PM DISTRICT OR DISTRICT OFFICE DIRECTOR Inhaled Oxygen Concentration - - Weight 59.9 kg (132 lb) 03/12/2024 2:43 PM CDT Height 152.4 cm (5') 03/12/2024 2:43 PM CDT Body Mass Index 25.78 03/12/2024 2:43 PM CDT Plan of Treatment Not on file Medical Devices Implanted Type Area Postal Mail Carrier Device Identifier Shelf Expiration Date Model / Serial / Lot [employer] [id number] Acrysof Iq Toric Stableforce 6mm 13mm 1 Piece Foldable Aspheric - [id number] - [id number] Implanted:Qty: 1 on 01/26/2019 by Ksenia Reid MD at [facility] Advanced Medicine Lens Left: Eye [employer] [id number] 10/23/2022 [id number] .5 / [id number] / Astigmatism Iol Acrysoft Toric (Pt Pays) - [id number] Implanted:Qty: 1 on 01/26/2019 by Ksenia Reid MD at [facility] Advanced Medicine Left: Eye [employer] SN6AT, SN6OT / / Astigmat Iol Acrysoft Toric Avg - [id number] Implanted:Qty: 1 on 01/26/2019 by Ksenia Reid MD at [facility] Left: Eye [employer] SN6AT, SN6OT / / Insurance MEDICARE RAILROAD MEDICARE RAILROAD AETNA SENIOR SUPPLEMENT Care Teams Funeral Director/Embalmer Relationship Specialty Start Date End Date Alfonso Albarran MD [address] [place] [address] PCP - General Internal Medicine 06/23/18 Tray Siddiqui MD [address] [place] [address] Ophthalmology 06/29/18
--- OUTSIDE RECORDS SUMMARY | 2025-05-04 15:17 | XMS_ITS | Clinical Summary ---
Author Organization [facility] Address [address] [place] [address] Care Team Providers Care Air Purifier Servicer Name Role Phone Alfonso Albarran MD Primary Care Provider [phone] Tray Siddiqui MD Unavailable [phone] Allergies Active Allergy Reactions Criticality Noted Date Comments Alendronate Anaphylaxis High 06/28/2020 Had difficulty swolling Medications VITAMIN D2 50,000 unit capsuleIndicati ons:stopped taking 01/13/19 Take 1 capsule (50,000 Units total) by mouth every 30 (thirty) days 8 Active pravastatin (PRAVACHOL) 10 mg tabletIndicatio ns:hyperlipidem ia,stopped taking 01/13/19 Take 1 tablet (10 mg total) by mouth small business director before breakfast Active amLODIPine (NORVASC) 5 mg [...] (12/28/2018): Added automatically from request for surgery [id number] Assessment & Plan (11/10/2023 10:37 AM ACCOUNTANT): F/u Pseudophakia OS (Toric IOL 01/26/19), Cataract [...] (01/25/2019): Added automatically from request for surgery [id number] Assessment & Plan (01/27/2019 7:48 AM ACCOUNTANT): Status post (s/p) uncomplicated CEIOL OS with [...] on file Legal Sex Female 3:26 AM ACCOUNTANT Gender Identity Female 09/12/2021 7:05 PM CDT Sexual Orientation Straight 09/12/2021 7: 05 PM CDT Obstetrics History Last Filed Vital Signs Vital Sign Reading Time Taken Comments Blood Pressure 126/76 10/21/2023 4:11 PM ACCOUNTANT Pulse 64 10/21/2023 4:11 PM ACCOUNTANT Temperature 36.3 C (97.4 F) 10/21/2023 4:11 PM ACCOUNTANT Respiratory Rate 18 03/12/2024 2:43 PM CDT Oxygen Saturation 96% 10/21/2023 4:11 PM ACCOUNTANT Inhaled Oxygen Concentration - - Weight 59.9 [...] 10/19/2007, 09/14/2007 Medical Devices Implanted Type Area Malted Milk Supervisor Device Identifier Shelf Expiration Date Model / Serial / Lot [employer] [id number] Acrysof Iq Toric Stableforce 6mm 13mm 1 Piece Foldable Aspheric - [id number] - [id number] Implanted:Qty: 1 on 01/26/2019 by Ksenia Reid MD at [facility] Advanced Medicine Lens Left: Eye [employer] [id number] 10/23/2022 [id number] .5 / [id number] / Astigmatism Iol Acrysoft Toric (Pt Pays) - [id number] Implanted:Qty: 1 on 01/26/2019 by Ksenia Reid MD at [facility] Medicine Left: Eye [employer] SN6AT, SN6OT / / Astigmat Iol Acrysoft Toric Avg - [id number] Implanted:Qty: 1 on 01/26/2019 by Ksenia Reid MD at [facility] Medicine Left: Eye [employer] SN6AT, SN6OT / / Insurance MEDICARE [employer] MEDICARE RAILROAD AETNA SENIOR SUPPLEMENT Care Teams Air Purifier Servicer Relationship Specialty Start Date End Date Alfonso Albarran MD [address] [place] [address] PCP - General Internal Medicine 06/23/18 Tray Siddiqui MD [address] [place] [address] Ophthalmology 06/29/18
[2025-05-05 08:38] LABS: Complement C3 167 mg/dL (83-193)
[2025-05-05 15:09] LABS: Parathyroid Intact 56 pg/mL (16-77)
[2025-05-06 10:33] LABS: Kappa\\Lambda Light Chains 1.73 (0.26-1.65); Lambda Light Chain 11.8 mg/L (5.7-26.3)
[2025-05-06 14:19] LABS: Complement Total CH50 48 U/mL (31-60)
[2025-05-08 01:38] LABS: Immunofixation, Serum Normal pattern.
== END 2025-05-04 13:07 | disposition home or self-care (01) ==
PROVIDERS: PCP Internal Medicine; Visit Provider Internal Medicine Nephrology
DX: I10 Essential (primary) hypertension (principal); E78.5 Hyperlipidemia, unspecified; N18.32 Chronic kidney disease, stage 3b
CPT/HCPCS: 36415; 76775; 80069; 82550; 83721; 83735; 83883; 83970; 84460; 85027; 85652; 86038; 86039; 86160; 86162; 86334

== ENCOUNTER 2025-05-06 08:04 | Outpatient (CLI) | payer MEDICARE, SELFPAY ==
--- OUTSIDE RECORDS SUMMARY | 2025-05-06 08:08 | XMS_ITS | Referral Summary ---
Author Organization [facility] Address [address] [place] [address] Care Team Providers Care Sales Promoter Name Role Phone Alfonso Albarran MD Primary Care Provider + [phone] Tray Siddiqui MD Unavailable [phone] Allergies Active Allergy Reactions Criticality Noted Date Comments Alendronate Anaphylaxis High 06/28/2020 Had difficulty swolling Medications VITAMIN D2 50,000 unit capsuleIndicati ons:stopped taking 01/13/19 Take 1 capsule (50,000 Units total) by mouth every 30 (thirty) days 8 Active pravastatin (PRAVACHOL) 10 mg tabletIndicatio ns:hyperlipidem ia,stopped taking 01/13/19 Take 1 tablet (10 mg total) by mouth mid level project manager before breakfast Active amLODIPine (NORVASC) 5 mg [...] (12/28/2018): Added automatically from request for surgery [id number] Assessment & Plan (11/10/2023 10:37 AM OPERATIONS ARCHITECT): F/u Pseudophakia OS (Toric IOL 01/26/19), Cataract [...] (01/25/2019): Added automatically from request for surgery [id number] Assessment & Plan (01/27/2019 7:48 AM OPERATIONS ARCHITECT): Status post (s/p) uncomplicated CEIOL OS with [...] on file Legal Sex Female 3:26 AM OPERATIONS ARCHITECT Gender Identity Female 09/12/2021 7:05 PM CDT Sexual Orientation Straight 09/12/2021 7: 05 PM CDT Last Filed Vital Signs Vital Sign Reading Time Taken Comments Blood Pressure 126/76 10/21/2023 4:11 PM OPERATIONS ARCHITECT Pulse 64 10/21/2023 4:11 PM OPERATIONS ARCHITECT Temperature 36.3 C (97.4 F) 10/21/2023 4:11 PM OPERATIONS ARCHITECT Respiratory Rate 18 03/12/2024 2:43 PM CDT Oxygen Saturation 96% 10/21/2023 4:11 PM OPERATIONS ARCHITECT Inhaled Oxygen Concentration - - Weight 59.9 kg (132 lb) 03/12/2024 2:43 PM CDT Height 152.4 cm (5') 03/12/2024 2:43 PM CDT Body Mass Index 25.78 03/12/2024 2:43 PM CDT Plan of Treatment Not on file Medical Devices Implanted Type Area Instructor Ground Services Device Identifier Shelf Expiration Date Model / Serial / Lot [employer] [id number] Acrysof Iq Toric Stableforce 6mm 13mm 1 Piece Foldable Aspheric - [id number] - [id number] Implanted:Qty: 1 on 01/26/2019 by Ksenia Reid MD at [facility] Lens Left: Eye [employer] [id number] 10/23/2022 [id number] / [id number] / Astigmatism Iol Acrysoft Toric (Pt Pays) - [id number] Implanted:Qty: 1 on 01/26/2019 by Ksenia Reid MD at [facility] Left: Eye [employer] SN6AT, SN6OT / / Astigmat Iol Acrysoft Toric Avg - [id number] Implanted:Qty: 1 on 01/26/2019 by Ksenia Reid MD at [facility] Left: Eye [employer] SN6AT, SN6OT / / Insurance MEDICARE RAILROAD MEDICARE RAILROAD AETNA SENIOR SUPPLEMENT Care Teams Sales Promoter Relationship Specialty Start Date End Date Alfonso Albarran MD [address] [place] [address] PCP - General Internal Medicine 06/23/18 Tray Siddiqui MD [address] [place] [address] Ophthalmology 06/29/18
--- OUTSIDE RECORDS SUMMARY | 2025-05-06 08:08 | XMS_ITS | Clinical Summary ---
Author Organization [facility] Address [address] [place] [address] Care Team Providers Care System Support Developer Name Role Phone Alfonso Albarran MD Primary Care Provider + [phone] Tray Siddiqui MD Unavailable [phone] Allergies Active Allergy Reactions Criticality Noted Date Comments Alendronate Anaphylaxis High 06/28/2020 Had difficulty swolling Medications VITAMIN D2 50,000 unit capsuleIndicati ons:stopped taking 01/13/19 Take 1 capsule (50,000 Units total) by mouth every 30 (thirty) days 8 Active pravastatin (PRAVACHOL) 10 mg tabletIndicatio ns:hyperlipidem ia,stopped taking 01/13/19 Take 1 tablet (10 mg total) by mouth wire photo operator before breakfast Active amLODIPine (NORVASC) 5 [...] (12/28/2018): Added automatically from request for surgery [id number] Assessment & Plan (11/10/2023 10:37 AM PHP MYSQL DEVELOPER): F/u Pseudophakia OS (Toric IOL 01/26/19), Cataract [...] (01/25/2019): Added automatically from request for surgery [id number] Assessment & Plan (01/27/2019 7:48 AM PHP MYSQL DEVELOPER): Status post (s/p) uncomplicated CEIOL OS with [...] on file Legal Sex Female 3:26 AM PHP MYSQL DEVELOPER Gender Identity Female 09/12/2021 7:05 PM CDT Sexual Orientation Straight 09/12/2021 7: 05 PM CDT Obstetrics History Last Filed Vital Signs Vital Sign Reading Time Taken Comments Blood Pressure 126/76 10/21/2023 4:11 PM PHP MYSQL DEVELOPER Pulse 64 10/21/2023 4:11 PM PHP MYSQL DEVELOPER Temperature 36.3 C (97.4 F) 10/21/2023 4:11 PM PHP MYSQL DEVELOPER Respiratory Rate 18 03/12/2024 2:43 PM CDT Oxygen Saturation 96% 10/21/2023 4:11 PM PHP MYSQL DEVELOPER Inhaled Oxygen Concentration - - Weight 59.9 [...] 10/19/2007, 09/14/2007 Medical Devices Implanted Type Area Director Physical Therapy Device Identifier Shelf Expiration Date Model / Serial / Lot [employer] [id number] Acrysof Iq Toric Stableforce 6mm 13mm 1 Piece Foldable Aspheric - [id number] - [id number] Implanted:Qty: 1 on 01/26/2019 by Ksenia Reid MD at [facility] Advanced Medicine Lens Left: Eye [employer] [id number] 10/23/2022 [id number] / [id number] 27 / Astigmatism Iol Acrysoft Toric (Pt Pays) - [id number] Implanted:Qty: 1 on 01/26/2019 by Ksenia Reid MD at [facility] Medicine Left: Eye [employer] SN6AT, SN6OT / / Astigmat Iol Acrysoft Toric Avg - [id number] Implanted:Qty: 1 on 01/26/2019 by Ksenia Reid MD at [facility] Medicine Left: Eye [employer] SN6AT, SN6OT / / Insurance MEDICARE [employer] MEDICARE RAILROAD AETNA SENIOR SUPPLEMENT Care Teams System Support Developer Relationship Specialty Start Date End Date Alfonso Albarran MD [address] [place] [address] PCP - General Internal Medicine 06/23/18 Tray Siddiqui MD [address] [place] [address] Ophthalmology 06/29/18
[2025-05-06 08:17] LABS: Add Urine Microscopic? YES; Appearance Urine Clear (Clear); Bilirubin Urine Negative (Negative); Blood Urine Negative (Negative); Color Urine Light Yellow (Yellow); Glucose Urine UA Negative (Negative); Ketones Urine Negative (Negative); Leukocyte Esterase Ur 2+ (Negative); Nitrate Urine Negative (Negative); Protein Urine Negative (Negative); Urobilinogen Urine 0.2 mg/dL (0.2-1.0)
[2025-05-06 08:24] LABS: Creatinine Urine 109.5 mg/dL; RBC Urine None seen /hpf (0-2); Squamous Epithelial Cell Urine Few /hpf (Few); Total Protein Urine Random < 7 mg/dL; Ur Ttl Prot Creatinine Ratio 0.06 mg/mg (0-0.20)
[2025-05-06 08:25] LABS: Bacteria Urine Rare /hpf
[2025-05-06 08:33] LABS: Total Volume 24 Hour Urine 1750 ml; Urea Nitrogen 24 Hour Urine 4.6 G/DAY (12-20); Urea Nitrogen Urine Random 268.1 mg/dl
[2025-05-10 11:54] LABS: Creat 24 Hr 0.89 g/24 h (0.50-2.15); Pro/Creat Ratio 78 mg/g creat (<150); Pro/Creat Ratio mg/mg 0.078 (<0.150); Protein,total, 24 Hr Ur 70 mg/24 h (<150)
== END 2025-05-06 08:05 | disposition home or self-care (01) ==
LOC: CHSLAB 08:05
PROVIDERS: PCP Internal Medicine; Visit Provider Internal Medicine Nephrology
DX: N18.32 Chronic kidney disease, stage 3b (principal)
CPT/HCPCS: 81001; 81050; 82570; 84156; 84540; 86335

== ENCOUNTER 2025-08-29 08:29 | Outpatient (CLI) | payer MEDICARE, SELFPAY ==
--- OUTSIDE RECORDS SUMMARY | 2025-08-29 08:55 | XMS_ITS | Clinical Summary ---
Author Organization [facility] Address [address] [place] [address] Care Team Providers Care Developer Prover Upholstering Name Role Phone Alfonso Albarran MD Primary Care Provider + [phone] Tray Siddiqui MD Unavailable [phone] Allergies Active Allergy Reactions Criticality Noted Date Comments Alendronate Anaphylaxis High 06/28/2020 Had difficulty swolling Medications pravastatin (PRAVACHOL) 10 mg tabletIndicatio ns:hyperlipidem ia,stopped taking 01/13/19 Take 1 tablet (10 mg total) by mouth rn acute dialysis before breakfast Active bisoprolol (ZEBETA) 5 mg tablet Take 1 tablet (5 mg total) by mouth daily 5 Active hydrALAZINE (APRESOLINE) 10 mg tablet 5 Active Active Problems Problem Noted Date Diagnosed Date Sensorineural hearing loss (SNHL) of both ears 0 03/12/2024 Hallux rigidus of left foot 09/29/2021 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 Defer cataract extraction (CE) for now and [...] color vision. Notes from Dr. 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, [address] [place] [address] Julia Ramirez MD Combined forms of age-related cataract of right eye (Primary Dx); Pseudophakia, left eye (Toric IOL 01/26/19) from Last 3 Months Surgical History Surgery Date Site/Laterality Comments GALLBLADDER [...] on file Legal Sex Female 3:26 AM LAND CLASSIFIER Gender Identity Female 09/12/2021 7:05 PM CDT Sexual Orientation Straight 09/12/2021 7: 05 PM CDT Obstetrics History Last Filed Vital Signs Vital Sign Reading Time Taken Comments Blood Pressure 126/76 10/21/2023 4:11 PM LAND CLASSIFIER Pulse 64 10/21/2023 4:11 PM LAND CLASSIFIER Temperature 36.3 C (97.4 F) 10/21/2023 4:11 PM LAND CLASSIFIER Respiratory Rate 18 03/12/2024 2:43 PM CDT Oxygen Saturation 96% 10/21/2023 4:11 PM LAND CLASSIFIER Inhaled Oxygen Concentration - - Weight 59.9 [...] Pneumococcal vaccine 65+ (2 of 2 - PCV20 or PCV21) 03/26/2017 03/26/2016 Influenza Vaccine (#1) 2025 8, 08/08/2017, 09/11/2016, Additional history exists Hepatitis B Screening Completed 03/01/2008 , 10/19/2007, 09/14/2007 Medical Devices Implanted Type Area Purchase Analyst Device Identifier Shelf Expiration Date Model / Serial / Lot [employer] [id number] Acrysof Iq Toric Stableforce 6mm 13mm 1 Piece Foldable Aspheric - [id number] - [id number] Implanted:Qty: 1 on 01/26/2019 by Ksenia Reid MD at [facility] Lens Left: Eye [employer] [id number] 10/23/2022 [id number] .[id number] / [id number] 27 / Astigmatism Iol Acrysoft Toric (Pt Pays) - [id number] Implanted:Qty: 1 on 01/26/2019 by Ksenia Reid MD at [facility] Left: Eye [employer] SN6AT, SN6OT / / Astigmat Iol Acrysoft Toric Avg - [id number] Implanted:Qty: 1 on 01/26/2019 by Ksenia Reid MD at [facility] Left: Eye [employer] SN6AT, SN6OT / / Insurance MEDICARE RAILROAD BANKERS [employer] [facility] S[facility] Care Teams Developer Prover Upholstering Relationship Specialty Start Date End Date Alfonso Albarran MD [address] [place] [address] PCP - General Internal Medicine 06/23/18 Tray Siddiqui MD [address] [place] [address] Ophthalmology 06/29/18
[2025-08-29 09:07] LABS: Hematocrit 36.7 % (35.0-42.0); Hemoglobin 12.1 g/dL (11.7-13.8); Mean Corpuscular HGB Conc 33.0 g/dL (32-36); Mean Corpuscular Hemoglobin 32.2 pg (27.0-31.0); Mean Corpuscular Volume 97.6 fL (78.0-102.0); Platelet Count Result 205 K/mm3 (150-420); Red Blood Count 3.76 M/mm3 (4.20-5.40); White Blood Count 5.9 K/mm3 (4.8-10.8)
[2025-08-29 09:14] LABS: Add Urine Microscopic? YES; Appearance Urine Clear (Clear); Glucose Urine UA Negative (Negative); Leukocyte Esterase Ur Trace LEU/UL (Negative); Nitrate Urine Negative (Negative); Specific Grav Ur 1.010 (1.010-1.020)
[2025-08-29 09:18] LABS: Hemoglobin A1C 5.3 % (<5.7)
[2025-08-29 09:20] LABS: Alanine Aminotransferase 18 U/L (6-35); Albumin Level 4.7 g/dL (3.5-5.1); Alkaline Phosphatase 41 U/L (38-126); Anion Gap 11 mmol/L (4-12); Aspartate Amino Transferase 30 U/L (14-36); Bilirubin,Total 0.8 mg/dL (0.2-1.3); Blood Urea Nitrogen 25 mg/dL (7-17); Calcium 9.9 mg/dL (8.4-10.2); Carbon Dioxide 26 mmol/L (22-30); Chloride 104 mmol/L (98-107); Cholesterol 191 mg/dL (0-200); Creatine Kinase 91 U/L (30-135); Estimated Glomerular Filt Rate 35; Glucose 96 mg/dL (65-110); HDL Direct 60 mg/dL; Osmolality Calculated 296 mOsm/kg (285-295); Potassium 4.7 mmol/L (3.4-5.0); Sodium 141 mmol/L (137-145); Total Protein 8.3 g/dL (6.3-8.2); Triglycerides 113 mg/dL (<150)
[2025-08-29 09:35] LABS: Total Protein Urine Random < 5 mg/dL; Ur Ttl Prot Creatinine Ratio 0.05 mg/mg (0-0.20)
[2025-08-30 10:33] LABS: Parathyroid Intact 51.7
== END 2025-08-29 08:30 | disposition home or self-care (01) ==
PROVIDERS: PCP Internal Medicine; Visit Provider Internal Medicine Nephrology
DX: E78.2 Mixed hyperlipidemia (principal); I12.9 Hypertensive chronic kidney disease with stage 1 through stage 4 chronic kidney disease, or unspecified chronic kidney disease; N18.32 Chronic kidney disease, stage 3b; R73.01 Impaired fasting glucose; N39.0 Urinary tract infection, site not specified
CPT/HCPCS: 36415; 80053; 80061; 81001; 82306; 82550; 82570; 83036; 83721; 83970; 84100; 84156; 85027

== ENCOUNTER 2025-10-04 14:09 | Outpatient (CLI) | payer MEDICARE, SELFPAY ==
--- NOTE | ~2025-10-04 | US_ITS ---
Clinical History: B/L carotid bruit, aortic stenosis Examination: US carotid duplex BI Comparison: None Technique: Grayscale, color, duplex/spectral Doppler sonography carotid and vertebral arteries. Distal CCA and Peak ICA systolic velocities provided. Society of Radiologists in Ultrasound (SRU) consensus criteria utilized, indirectly assessing stenosis by velocities. Findings: Minimal plaque Right side: CCA - 58 cm/sec. ICA - 56 cm/sec. ICA/CCA - 0.7 Left Side: CCA - 57 cm/sec. ICA - 57 cm/sec. ICA/CCA - 1.0 Normal antegrade flow measured bilateral vertebral arteries. IMPRESSION: 1. No hemodynamically significant ICA stenosis (i.e., if any stenosis, less than 50%). 2. Normal bilateral antegrade vertebral artery flow. Stenosis measured by Society of Radiologists in Ultrasound (SRU) criteria. Reviewed, dictated and finalized at location R. PREPARATOR IMPRESSION: 1. No hemodynamically significant ICA stenosis (i.e., if any stenosis, less th an 50%). 2. Normal bilateral antegrade vertebral artery flow. Stenosis measured by Society of Radiologists in Ultrasound (SRU) criteria.
--- OUTSIDE RECORDS SUMMARY | 2025-10-04 14:15 | XMS_ITS | Clinical Summary ---
Author Organization [facility] Address [address] [place] [address] Care Team Providers Care Cena Name Role Phone Alfonso Albarran MD Primary Care Provider + [phone] Tray Siddiqui MD Unavailable [phone] Allergies Active Allergy Reactions Criticality Noted Date Comments Alendronate Anaphylaxis High 06/28/2020 Had difficulty swolling Medications pravastatin (PRAVACHOL) 10 mg tabletIndicatio ns:hyperlipidem ia,stopped taking 01/13/19 Take 1 tablet (10 mg total) by mouth museum exhibit technician before breakfast Active bisoprolol (ZEBETA) 5 mg [...] (12/28/2018): Added automatically from request for surgery [id number] Assessment & Plan (11/10/2023 10:37 AM CYBER SECURITY ANALYST): F/u Pseudophakia OS (Toric IOL 01/26/19), Cataract [...] (01/25/2019): Added automatically from request for surgery [id number] Assessment & Plan (01/27/2019 7:48 AM CYBER SECURITY ANALYST): Status post (s/p) uncomplicated CEIOL OS with [...] on file Legal Sex Female 3:26 AM CYBER SECURITY ANALYST Gender Identity Female 09/12/2021 7:05 PM CDT Sexual Orientation Straight 09/12/2021 7: 05 PM CDT Last Filed Vital Signs Vital Sign Reading Time Taken Comments Blood Pressure 126/76 10/21/2023 4:11 PM CYBER SECURITY ANALYST Pulse 64 10/21/2023 4:11 PM CYBER SECURITY ANALYST Temperature 36.3 C (97.4 F) 10/21/2023 4:11 PM CYBER SECURITY ANALYST Respiratory Rate 18 03/12/2024 2:43 PM CDT Oxygen Saturation 96% 10/21/2023 4:11 PM CYBER SECURITY ANALYST Inhaled Oxygen Concentration - - Weight 59.9 [...] Pneumococcal vaccine 65+ (2 of 2 - PPSV23, PCV20, or PCV21) 05/21/2016 03/26/2016 Influenza Vaccine (#1) 2025 8, 08/08/2017, 09/11/2016, Additional history exists Hepatitis B Screening Completed 03/01/2008 , 10/19/2007, 09/14/2007 Medical Devices Implanted Type Area Deoiling Machine Operator Device Identifier Shelf Expiration Date Model / Serial / Lot [employer] [id number] Acrysof Iq Toric Stableforce 6mm 13mm 1 Piece Foldable Aspheric - [id number] - [id number] Implanted:Qty: 1 on 01/26/2019 by Ksenia Reid MD at [facility] Advanced Medicine Lens Left: Eye [employer] [id number] 10/23/2022 [id number] .[id number] / [id number] 27 / Astigmatism Iol Acrysoft Toric (Pt Pays) - [id number] Implanted:Qty: 1 on 01/26/2019 by Ksenia Reid MD at [facility] Medicine Left: Eye [employer] SN6AT, SN6OT / / Astigmat Iol Acrysoft Toric Avg - [id number] Implanted:Qty: 1 on 01/26/2019 by Ksenia Reid MD at [facility] Left: Eye [employer] SN6AT, SN6OT / / Insurance MEDICARE RAILROAD BANKERS [employer] MEDICARE RAILROAD AETNA SENIOR SUPPLEMENT Care Teams Cena Relationship Specialty Start Date End Date Alfonso Albarran MD [address] [place] [address] PCP - General Internal Medicine 06/23/18 Tray Siddiqui MD [address] [place] [address] Ophthalmology 06/29/18
--- OUTSIDE RECORDS SUMMARY | 2025-10-04 14:15 | XMS_ITS | Clinical Summary ---
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 Gender Identity Not on file Sexual Orientation Not on file Last Filed Vital Signs Vital Sign Reading Time Taken Comments Blood Pressure 109/58 04/22/2014 2:38 PM CDT Pulse - - Temperature - - Respiratory Rate - - Oxygen Saturation - - Inhaled Oxygen Concentration - - Weight 71.7 kg (158 lb) 04/22/2014 2:38 PM CDT Height 154.9 cm (5' 1) 04/22/2014 2:41 PM CDT Body Mass Index [...] 75+ series) 2020 COVID-19 Vaccine ( - 2024-2 6 season) 2025 Influenza Adult (#1) 2025 Hepatitis A Vaccines Aged Out No long er eligible based on patient's age to complete this topic Meningococcal B Vaccine Aged Out No l onger eligible based on patient's age to complete this topic Meningococcal Vaccine Aged Out No johnie jerry eligible based on patient's age to complete this topic RSV Immunizations Under 20 Months Aged Out No longer eligible based on patient's age to complete this topic
--- NOTE | 2025-10-04 14:34 | ECHO_ITS ---
Patient Info Name: Angelina Menjivar Age: 79 years : 1945 Gender: Female Ht: 60 in Wt: 127 lbs BSA: 1.57 m2 HR: 54 bpm BP: 110 / 54 mmHg Technical Quality: Good Exam Date: 10/04/2025 3:07 PM Patient Status: O Admit Date: 10/04/2025 Exam Type: CA echo doppler color flow Complete two-dimensional, color flow and Doppler transthoracic echocardiogram is performed. Staff Referring Physician: Alfonso Albarran MD Headrig Sawyer: Efrain Dunbar III Attending Provider: Alfonso Albarran MD Summary 1. Complete two-dimensional, color flow and Doppler transthoracic echocardiogram is performed. 2. Left ventricular chamber dimension is normal. 3. Left ventricular systolic function is normal, estimated at 60-65. 4. The left ventricular diastolic function is abnormal. 5. E/e' 10 is mildly elevated. 6. Left atrial chamber dimension is mildly enlarged. 7. Right atrial chamber dimension is mildly enlarged. 8. There is moderate aortic valve sclerosis. 9. There is mild aortic valve stenosis with a peak velocity of 199 cm/s, mean gradient of 7 mmHg, and aortic valve area of 1.8 cm2. 10. There is mild mitral valve regurgitation. 11. There is moderate tricuspid valve regurgitation. 12. No pulmonary hypertension, estimated pulmonary arterial systolic pressure is 32 mmHg. 13. There is trace pulmonic regurgitation. Left Ventricle E/e' 10 is mildly elevated. Left ventricular chamber dimension is normal. Left ventricular systolic function is normal, estimated at 60-65. The left ventricular diastolic function is abnormal. Right Ventricle Right ventricular chamber dimension is normal. Right ventricular systolic function is normal and with normal TAPSE 2.0 cm. Left Atria Left atrial chamber dimension is mildly enlarged. Right Atria Right atrial chamber dimension is mildly enlarged. Aortic Valve The aortic valve is trileaflet. There is moderate aortic valve sclerosis. There is mild aortic valve stenosis with a peak velocity of 199 cm/s, mean gradient of 7 mmHg, and aortic valve area of 1.8 cm2. There is no aortic valve regurgitation. Pulmonic Valve There is trace pulmonic regurgitation. Mitral Valve There is no mitral valve stenosis. There is mild mitral valve regurgitation. Tricuspid Valve There is moderate tricuspid valve regurgitation. No pulmonary hypertension, estimated pulmonary arterial systolic pressure is 32 mmHg. Pericardium/Pleural There is no pericardial effusion. Inferior Vena Cava Normal inferior vena cava with >50% collapse upon inspiration consistent with normal right atrial pressure, 5 mmHg. Aorta The aortic root size at the sinus of Valsalva is normal. Left Ventricular Outflow Tract Name Value Normal LVOT 2D LVOT Diameter 2.0 cm LVOT Doppler LVOT Peak Velocity 112 cm/s LVOT Peak Gradient 5 mmHg LVOT Mean Gradient 2 mmHg LVOT VTI 28 cm LVOT VTI/AV VTI Ratio 0.6 LVOT Stroke Volume 87 ml LVOT CO 4.1 l/min LVOT CI 2.6 l/min/m2 Mitral Valve Name Value Normal MV Doppler MV Peak Gradient 3 mmHg MV Mean Gradient 1 mmHg MV Area (Cont Eq VTI) 3.1 cm2 MV Diastolic Function MV E Peak Velocity 74 cm/s MV A Peak Velocity 66 cm/s MV E/A 1.1 MV Decel Time (PW) 187 ms MV Annular TDI MV E/e' (Septal) 12.0 MV E/e' (Lateral) 8.9 MV E/e' (Average) 10.4 Tricuspid Valve Name Value Normal TV Regurgitation Doppler TR Peak Velocity 261 cm/s TR Peak Gradient 26 mmHg Estimated PAP/RSVP RA Pressure 5 mmHg <=5 PA Systolic Pressure 32 mmHg <36 RV Systolic Pressure 32 mmHg <36 TV Annular TDI TV Lateral Louisa s' Velocity 12.0 cm/s >=9.5 Aortic Valve Name Value Normal AV Doppler AV Peak Velocity 199 cm/s AV Peak Gradient 16 mmHg AV Mean Gradient 7 mmHg AV VTI 48 cm AV Area (Cont Eq VTI) 1.8 cm2 >=3.0 AV Area (Cont Eq Juliocesar) 1.8 cm2 AV DI (Juliocesar) 0.57 AV Regurgitation 2D LVOT Area 3.2 cm2 Ventricles Name Value Normal LV Dimensions 2D/MM IVS Diastolic Thickness (2D) 0.9 cm 0.6-1.0 LVID Diastole (2D) 4.4 cm 3.8-5.2 LVIW Diastolic Thickness (2D) 0.9 cm 0.6-0.9 LVID Systole (2D) 3.0 cm 2.2-3.5 LVOT Diameter 2.0 cm LV Mass (2D Cubed) 124.05 g 67.00-162.00 LV Mass Index (2D Cubed) 79 g/m2 43-95 Relative Wall Thickness (2D) 0.40 <=0.42 LV Fractional Shortening/Ejection Fraction 2D/MM LV Fractional Shortening (2D) 31 % 27-45 LV EF (2D Teichholz) 59 % LV Diastolic Volume (4C MOD) 55 ml LV EF (4C MOD) 65 % LV Diastolic Volume (2C MOD) 50 ml LV EF (2C MOD) 72 % LV Diastolic Volume (BP MOD) 53 ml 46-106 LV Diastolic Volume Index (BP MOD) 33 ml/m2 29-61 LV Systolic Volume (BP MOD) 17 ml 14-42 LV Systolic Volume Index (BP MOD) 11 ml/m2 8-24 LV EF (BP MOD) 68 % 54-74 LV Diastolic Length (4C) 7.1 cm LV Systolic Length (4C) 5.5 cm LV Stroke Volume (4C MOD) 36 ml Atria Name Value Normal LA Dimensions LA Volume (4C A-L) 57 ml LA Volume (BP A-L) 53 ml RA Dimensions RA Systolic Major Dyke Length (4C) 5.7 cm 2.2-2.8 RA Area (4C) 19.0 cm2 <=18.0 Report Signatures
== END 2025-10-04 14:10 | disposition home or self-care (01) ==
LOC: CHSIMG 14:11
PROVIDERS: PCP Internal Medicine; Visit Provider Internal Medicine
DX: R01.1 Cardiac murmur, unspecified (principal); R09.89 Other specified symptoms and signs involving the circulatory and respiratory systems; I08.1 Rheumatic disorders of both mitral and tricuspid valves; I35.8 Other nonrheumatic aortic valve disorders; I50.30 Unspecified diastolic (congestive) heart failure
CPT/HCPCS: 93306; 93880

== ENCOUNTER 2025-11-12 10:48 | Outpatient (CLI) | payer MEDICARE, SELFPAY ==
--- OUTSIDE RECORDS SUMMARY | 2025-11-12 10:51 | XMS_ITS | Clinical Summary ---
Author Organization [facility] Address [address] [place] [address] Care Team Providers Care Applications Manager Name Role Phone Unavailable Primary Care Provider Unavailabl e Source Comments [facility],non-owned Affiliates and Associated Physician Practices is amultiple site organization consisting of ambulatory clinics and hospital sitesin [place], [place], [place] and [place]. This disclosure is being madepursuant to the Care Everywhere program and may not contain all information available regarding this patient. Last updated 18.[facility] Encounters Date Type Department Care Team Description 10/05/2025 Lab Requisition [facility] - DermPath Lab [address] [place] [address] Milagro Lei DO Neoplasm of uncertain behavior of skin from Last 3 Months Social History Tobacco Use Types Packs/Day Years Used Date Smoking Tobacco: Never Assessed Comments Unknown Sex and Gender Information Value Date Recorded Sex Assigned at Not on file Legal Sex Female 10:53 AM SHIPFITTERS SUPERVISOR Gender Identity Not on file Sexual Orientation Not on file Plan of Treatment Health Maintenance Due Date Last Done Comments BONE DENSITY TESTING 1945 MEDICARE AWV 12 MONTHS 1945 DTAP/TDAP/TD VACCINES (1 - Tdap) 1964 PNEUMOCOCCAL VACCINE 50+ (1 of 1 - PCV) 1995 ZOSTER VACCINE (1 of 2) 1995 Respiratory Syncytial Virus (RSV) Vaccine Pt: or over 60 yrs (1 - 1-dose 75+ series) 2020 DEPRESSION SCREENING 11/24/2024 COVID-19 VACCINE ( - 2024-2 6 season) 2025 INFLUENZA VACCINE (#1) 2025 HEPATITIS B VACCINE Aged Out No longe r eligible based on patient's age to complete this topic HIB VACCINE Aged Out No longer eligi ble based on patient's age to complete this topic HPV VACCINE Aged Out No longer eligi ble based on patient's age to complete this topic MENINGOCOCCAL (Group B) VACC INE SHARED DECISION-MAKING Aged Out No longer eligibl e based on patient's age to complete this topic MENINGOCOCCAL GROUPS A/C/Y/W VACCINE Aged Out No longer eligible b ased on patient's age to complete this topic Procedures Procedure Name Priority Date/Time Associated Diagnosis Comments DERMATOPATHOLOGY Routine 10/05/2025 8:30 AM SHIPFITTERS SUPERVISOR Neoplasm of uncertain behavior of skin from Last 3 Months Results * DERMATOPATHOLOGY (10/05/2025 8:30 AM SHIPFITTERS SUPERVISOR) Case Report Dermatopathology Report Case: [id number] Authorizing Provider: Milagro Lei DO Collected: 10/05/2025 08:30 AM Ordering Location: [facility] - Received: 10/06/2025 11:06 AM DermPath Lab Pathologist: Jazz Marie MD Specimen: Skin, neck 4:31 PM [facility] DERMAT[facility]Y [facility]OR[facility] Final Diagnosis Specimen A. 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 SCC 4:31 PM [facility]MAT[facility] Gross Description Specimen A: Received is one formalin filled container labeled with the patient's name and designated neck. The specimen consists of a shave biopsy measuring 6x4x1 mm. Jar 0. 4:31 PM [facility] Microscopic Description Specimen A. SKIN, neck: The epidermis shows parakeratosis, full thickness disorderly maturation of keratinocytes, mitoses at different levels, and dyskeratotic cells. 4:31 PM [facility]MAT[facility] Disclaimer An external and internal positive and negative controls are appropriate for the histochemical, immunohistochemical and immunofluorescence stain(s) in this case (if any), except where stated explicitly. The performance characteristics of the stain(s) cited in this report were developed and its performance characteristic determined by the Dermatopathology Laboratory at [facility], directed by Dr. Analisa Marie. These tests need not be, and therefore are not, approved by the [place] Food and Drug Administration. The tests are used for clinical purposes. Billing Codes Specimen Charges Stain Charges 70846 1 5 4:31 PM SHIPFITTERS SUPERVISOR DERMATOPATHOLOGY LABORATORY Embedded Images 5 4:31 PM SHIPFITTERS SUPERVISOR DERMATOPATHOLOGY LABORATORY Pathology/Cytolo gy TISSUE SPECIMEN FROM SKIN / Unknown 10/05/2025 8:30 AM SHIPFITTERS SUPERVISOR 10/06/2025 11:06 AM SHIPFITTERS SUPERVISOR us Milagro Lei DO LAB - PATHOLOGY/CYTOLOGY ORDERABLES Final Result DERMATOPATHOLOGY LABORATORY [facility] - Department of Dermatology [address], [address] [phone] from Last 3 [place] [address] [facility] [place] [address] [place] [address] [facility] MEDICARE AETNA MEDICARE AET[employer]
--- OUTSIDE RECORDS SUMMARY | 2025-11-12 10:51 | XMS_ITS | Clinical Summary ---
Author Organization [facility] Address [address] [place] [address] Care Team Providers Care Machine Joint Cutter Name Role Phone Alfonso Albarran MD Primary Care Provider + [phone] Tray Siddiqui MD Unavailable [phone] Allergies Active Allergy Reactions Criticality Noted Date Comments Alendronate Anaphylaxis High 06/28/2020 Had difficulty swolling Medications pravastatin (PRAVACHOL) 10 mg tabletIndicatio ns:hyperlipidem ia,stopped taking 01/13/19 Take 1 tablet (10 mg total) by mouth non ferrous material handler before breakfast Active bisoprolol (ZEBETA) 5 mg [...] (12/28/2018): Added automatically from request for surgery [id number] Assessment & Plan (11/10/2023 10:37 AM REFRIGERATING ENGINEER HEAD): F/u Pseudophakia OS (Toric IOL 01/26/19), Cataract [...] (01/25/2019): Added automatically from request for surgery [id number] Assessment & Plan (01/27/2019 7:48 AM REFRIGERATING ENGINEER HEAD): Status post (s/p) uncomplicated CEIOL OS with [...] on file Legal Sex Female 3:26 AM REFRIGERATING ENGINEER HEAD Gender Identity Female 09/12/2021 7:05 PM CDT Sexual Orientation Straight 09/12/2021 7: 05 PM CDT Last Filed Vital Signs Vital Sign Reading Time Taken Comments Blood Pressure 126/76 10/21/2023 4:11 PM REFRIGERATING ENGINEER HEAD Pulse 64 10/21/2023 4:11 PM REFRIGERATING ENGINEER HEAD Temperature 36.3 C (97.4 F) 10/21/2023 4:11 PM REFRIGERATING ENGINEER HEAD Respiratory Rate 18 03/12/2024 2:43 PM CDT Oxygen Saturation 96% 10/21/2023 4:11 PM REFRIGERATING ENGINEER HEAD Inhaled Oxygen Concentration - - Weight 59.9 [...] 10/19/2007, 09/14/2007 Medical Devices Implanted Type Area Diamond Sander Device Identifier Shelf Expiration Date Model / Serial / Lot [employer] [id number] Acrysof Iq Toric Stableforce 6mm 13mm 1 Piece Foldable Aspheric - [id number] - [id number] Implanted:Qty: 1 on 01/26/2019 by Ksenia Reid MD at [facility] Lens Left: Eye [employer] [id number] 10/23/2022 [id number] / [id number] / Astigmatism Iol [employer] Toric (Pt Pays) - [id number] Implanted:Qty: 1 on 01/26/2019 by Ksenia Reid MD at [facility] Medicine Left: Eye [employer] SN6AT, SN6OT / / Astigmat Iol [employer] Tor[employer] Avg - [id number] Implanted:Qty: 1 on 01/26/2019 by Ksenia Reid MD at [facility] Left: Eye [employer] SN6AT, SN6OT / / Insurance MEDICARE [employer] MEDICARE RAILRO[employer] SENIOR SUPPLEMENT Care Teams Machine Joint Cutter Relationship Specialty Start Date End Date Alfonso Albarran MD [address] [place] [address] PCP - General Internal Medicine 06/23/18 Tray Siddiqui MD [address] [place] [address] Ophthalmology 06/29/18
--- OUTSIDE RECORDS SUMMARY | 2025-11-12 10:51 | XMS_ITS | Encounter Summary ---
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 Name Role Phone Unavailable Primary Care Provider Unavailabl e Encounter Details Date Type Department Care Team (Late st Contact Info) Description 10/05/2025 Lab Requisition [facility] - DermPath Lab [address] [facility] [place] [phone] Milagro Lei DO [address] [address] [place] [address] Neoplasm of uncertain behavior of skin Social History Tobacco Use Types Packs/Day Years Used Date Smoking Tobacco: Never Assessed Comments Unknown Sex and Gender Information Value Date Recorded Sex Assigned at Not on file Legal Sex Female 10:53 AM SHANK INSPECTOR Gender Identity Not on file Sexual Orientation Not on file documented as of this encounter Plan of Treatment Not on file documented as of this encounter Procedures Procedure Name Priority Date/Time Associated Diagnosis Comments DERMATOPATHOLOGY Routine 10/05/2025 8:30 AM SHANK INSPECTOR Neoplasm of uncertain behavior of skin documented in this encounter Results * DERMATOPATHOLOGY (10/05/2025 8:30 AM SHANK INSPECTOR) Case Report Dermatopathology Report Case: [id number] Authorizing Provider: Milagro Lei DO Collected: 10/05/2025 08:30 AM Ordering Location: [facility] - Received: 10/06/2025 11:06 AM DermPath Lab Pathologist: Jazz Marie MD Specimen: Skin, neck 4:31 PM SHANK INSPECTOR DERMATOPATHOLOGY LABORATORY Final Diagnosis Specimen A. 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 SCC 4:31 PM [facility] DERMATOPATH[facility]Y [facility]ORAT[facility] Gross Description Specimen A: Received is one formalin filled container labeled with the patient's name and designated neck. The specimen consists of a shave biopsy measuring 6x4x1 mm. Jar 0. 4:31 PM [facility] DERMATOPATHOLOGY LABORATORY Microscopic Description Specimen A. SKIN, neck: The epidermis shows parakeratosis, full thickness disorderly maturation of keratinocytes, mitoses at different levels, and dyskeratotic cells. 4:31 PM [facility] DERMATOPATHOLOGY LABORATORY Disclaimer An external and internal positive and negative controls are appropriate for the histochemical, immunohistochemical and immunofluorescence stain(s) in this case (if any), except where stated explicitly. The performance characteristics of the stain(s) cited in this report were developed and its performance characteristic determined by the Dermatopathology Laboratory at [facility], directed by Dr. Analisa Marie. These tests need not be, and therefore are not, approved by the [place] Food and Drug Administration. The tests are used for clinical purposes. Billing Codes Specimen Charges Stain Charges 47688 1 4:31 PM [facility] DERMATOPATHOLOGY [facility]ORATORY Embedded Images 4:31 PM [facility] DERMATOPATHOLOGY LABORATORY Pathology/Cytolo gy TISSUE SPECIMEN FROM SKIN / Unknown 10/05/2025 8:30 AM SHANK INSPECTOR 10/06/2025 11:06 AM SHANK INSPECTOR Milagro Lei DO LAB - PATHOLOGY/CYTOLOGY ORDERABLES Final Result DERMATOPATHOLOGY LABORATORY [facility] - Department of Dermatology [address], [address] [phone] documented in this encounter Visit Diagnoses Diagnosis Neoplasm of uncertain behavior of skin documented in this encounter
[2025-11-12 11:18] LABS: Estimated Glomerular Filt Rate 38; Potassium 4.2 mmol/L (3.4-5.0)
== END 2025-11-12 10:49 | disposition home or self-care (01) ==
LOC: CHSLAB 10:49
PROVIDERS: PCP Internal Medicine; Visit Provider Internal Medicine
DX: N18.32 Chronic kidney disease, stage 3b (principal)
CPT/HCPCS: 36415; 82565; 84132